=== PATIENT | male | born 1945 | race Caucasian/White ===

== ENCOUNTER 2020-06-07 08:41 | Emergency (ER) | payer OTHER ==
--- NOTE | 2020-06-07 10:28 | EDM.PDOC ---
ED HPI GENERAL MEDICAL PROBLEM - General Chief Complaint: Cardiovascular Problem Stated Complaint: SHORT OF BREATH LAST FEW DAYS Time Seen by Provider: 06/07/20 09:10 Source of Information: Reports: Patient History Limitations: Reports: No Limitations - History of Present Illness INITIAL COMMENTS - FREE TEXT/NARRATIVE: 74-year-old male with longstanding atrial fibrillation and coronary artery disease presents with 2 months of shortness of breath, seems to be worsening over the past 1 to 2 weeks. No pain, no orthopneic issues. Most of his shortness of breath is with activity. He is also noticed increased peripheral edema. He has had no sudden exchange engineer the last few days, it is been a progression over time. Denies palpitations. Onset: Gradual Duration: Week(s): Improves with: Reports: Rest Worsens with: Reports: Other (Dyspnea is much worse with activity), Movement Associated Symptoms: Reports: Malaise, Shortness of Breath, Weakness. Denies: Confusion, Chest Pain, Cough, Diaphoresis, Fever/Chills, Nausea/Vomiting - Related Data Allergies Allergy/AdvReac Type Severity Reaction Status Date / Time No Known Allergies Allergy Verified 06/07/20 09:03 Home Meds: Home Meds Alogliptin Benzoate [Alogliptin] 25 mg PO DAILY 06/07/20 [History] Aspirin [Halfprin] 81 mg PO DAILY 06/07/20 [History] Bicalutamide [Casodex] 50 mg PO DAILY 06/07/20 [History] Dabigatran Etexilate Mesylate [Pradaxa] 150 mg PO BID 06/07/20 [History] Digoxin 0.25 mg PO DAILY 06/07/20 [History] Finasteride 5 mg PO DAILY 06/07/20 [History] Leuprolide Acetate [Eligard] 22.5 mg SQ ASDIRECTED 06/07/20 [History] Multivitamin 1 tab PO DAILY 06/07/20 [History] atorvaSTATin [Lipitor] 80 mg PO BEDTIME 06/07/20 [History] glipiZIDE [Glucotrol] 10 mg PO DAILY 06/07/20 [History] metFORMIN [Glucophage] 2,000 mg PO DAILY 06/07/20 [History] traZODone HCl [Trazodone HCl] 100 mg PO ASDIRECTED 06/07/20 [History] Past Medical History Cardiovascular History: Reports: High Cholesterol, Hypertension, [place], Stents, Other (See Below) Other Cardiovascular History: irregular heart beat Respiratory History: Reports: Sleep Apnea, SOB Other Respiratory History: does not wear his cpap Gastrointestinal History: Reports: None Genitourinary History: Reports: Prostate Disorder Neurological History: Reports: Concussion Endocrine/Metabolic History: Reports: Obesity/BMI 30+ Hematologic History: Reports: Anticoagulation Therapy Oncologic (Cancer) History: Reports: Prostate - Past Surgical History Head Surgeries/Procedures: Reports: None Cardiovascular Surgical History: Reports: Coronary Artery Stent Respiratory Surgical History: Reports: None GI Surgical History: Reports: Appendectomy Endocrine Surgical History: Reports: None Neurological Surgical History: Reports: None Oncologic Surgical History: Reports: None Dermatological Surgical History: Reports: None Social & Family History - Tobacco Use Smoking Status *Q: Former Smoker Used Tobacco, but Quit: Yes Month/Year Tobacco Last Used: 2009 Second Hand Smoke Exposure: No - Caffeine Use Caffeine Use: Reports: Coffee - Recreational Drug Use Recreational Drug Use: No ED ROS GENERAL - Review of Systems Review Of Systems: See Below Constitutional: Denies: Fever, Chills Respiratory: Reports: Shortness of Breath. Denies: Pleuritic Chest Pain, Cough Cardiovascular: Denies: Palpitations GI/Abdominal: Denies: Abdominal Pain, Nausea, Vomiting Musculoskeletal: Reports: Back Pain (Chronic, recurring) Skin: Denies: Diaphoresis Neurological: Reports: Weakness Psychiatric: Reports: No Symptoms ED EXAM, GENERAL - Physical Exam Exam: See Below Exam Limited By: No Limitations General Appearance: Alert, No Apparent Distress Eye Exam: Bilateral Eye: Normal Inspection Head: Atraumatic Neck: Supple Respiratory/Chest: Lungs Clear Cardiovascular: Tachycardia, Irregularly Irregular GI/Abdominal: Soft, Non-Tender, Other (Patient is moderately obese) Extremities: Pedal Edema (2+ pitting edema, symmetric in the lower extremities) Neurological: Alert, Oriented, No Motor/Sensory Deficits Psychiatric: Normal Affect, Normal Mood Skin Exam: Warm, Dry EKG INTERPRETATION Rhythm: A-Fib Rate (Beats/Min): 120 QRS: Normal ST-T: Normal Course - Vital Signs Last Recorded V/S: Last Vital Signs Temp 97.5 F 06/07/20 09:12 Pulse 111 H 06/07/20 09:45 Resp 29 H 06/07/20 09:45 BP 144/104 H 06/07/20 09:45 Pulse Ox 90 L 07/29/20 09:45 - Orders/Labs/Meds Orders: Active Orders 24 hr Category Date Time Status EKG Documentation Completion [RC] ASDIRECTED Care 06/07/20 09:35 Active EKG 12 Lead [EK] Routine Ther 06/07/20 09:35 Ordered Labs: Laboratory Tests 06/07/20 06/07/20 06/07/20 Range/Units 09:35 09:35 09:45 WBC 9.7 (4.5-11.0) K/uL RBC 4.96 (4.30-5.90) M/uL Hgb 14.5 (12.0-15.0) g/dL Hct 44.3 (40.0-54.0) % MCV 89 (80-98) fL MCH 29 (27-31) pg MCHC 33 (32-36) % Plt Count 185 (150-400) K/uL Neut % (Auto) 70 H (36-66) % Lymph % (Auto) 21 L (24-44) % [place] % (Auto) 7 H (2-6) % Eos % (Auto) 1 L (2-4) % Baso % (Auto) 1 (0-1) % Sodium 142 (140-148) mmol/L Potassium 4.3 (3.6-5.2) mmol/L Chloride 104 (100-108) mmol/L Carbon Dioxide 31 (21-32) mmol/L Anion Gap 7.4 (5.0-14.0) mmol/L BUN 17 (7-18) mg/dL Creatinine 1.0 (0.8-1.3) mg/dL Est Cr Clr Drug Dosing 66.92 mL/min Estimated GFR (MDRD) > 60 (>60) Glucose 204 H (74-106) mg/dL Calcium 9.2 (8.5-10.1) mg/dL Total Bilirubin 0.9 (0.2-1.0) mg/dL AST 17 (15-37) U/L ALT 20 (12-78) U/L Alkaline Phosphatase 55 (46-116) U/L Troponin I 0.034 (0.000-0.056) ng/mL Total Protein 7.2 (6.4-8.2) g/dL Albumin 3.8 (3.4-5.0) g/dL Globulin 3.4 (2.3-3.5) g/dL Albumin/Globulin Ratio 1.1 L (1.2-2.2) Digoxin 0.28 L (0.90-2.00) ng/mL - Re-Assessments/Exams Free Text/Narrative Re-Assessment/Exam: 06/07/20 10:25 EKG confirmed atrial fibrillation with rapid ventricular response. Bedside ultrasound showed no pericardial effusion, there was some dilatation of the right ventricle but normal valve closure. Chest x-ray showed no congestive failure, there was cardiomegaly. CBC and CMP were remarkably normal, glucose was 204 all other levels were normal. Digoxin was subtherapeutic at 0.28 and troponin was within normal limits. 06/07/20 10:26 I reviewed the patient's medications and also discussed it with internal medicine. This patient would benefit from being on a beta-trudy as well as furosemide. He was started on 25 mg of extended release metoprolol to take at night bedtime, and 20 mg of Lasix to take in the morning. He will return if worsening despite the medication changes, and I also asked him to call his primary health provider at the [facility] to discuss the medications and approve them to continue taking them. 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 Watch any extra salt intake carefully, and discussed the new medications with your regular provider when possible. Return anytime if worsening despite medicine changes, or consider rechecking next week if not improving satisfactorily. Sepsis Event Note (ED) - Evaluation Sepsis Screening Result: No Definite Risk - Focused Exam Vital Signs: Vital Signs Temp Pulse Resp BP Pulse Ox 06/07/20 09:45 111 H 29 H 144/104 H 90 L 06/07/20 09:27 132 H 15 148/102 H 97 06/07/20 09:13 88 18 130/111 H 95 06/07/20 09:12 97.5 F 54 L 20 172/115 H 94 L 06/07/20 09:01 97.5 F 54 L 20 172/115 H 94 L - My Orders Last 24 Hours: My Active Orders 06/07/20 09:35 EKG Documentation Completion [RC] ASDIRECTED EKG 12 Lead [EK] Routine - Assessment/Plan Last 24 Hours: My Active Orders 06/07/20 09:35 EKG Documentation Completion [RC] ASDIRECTED EKG 12 Lead [EK] Routine
--- NOTE | 2020-06-07 10:37 | CR ---
CHEST: Portable 06/07/2020 at 9:46 AM CLINICAL HISTORY:SOB COMPARISON:2013 FINDINGS: Heart is enlarged. Lung markings are exaggerated by patient's large size and partially upright technique. Mild pulmonary venous hypertension is not excluded. No infiltrates or effusions seen. There are atherosclerotic changes in the aorta. Impression: Moderate cardiomegaly Mild vascular cephalization. Some of this may be positional.
== END 2020-06-07 10:35 | disposition home or self-care (01) ==
LOC: JP.ED 08:41
DX: I11.0 Hypertensive heart disease with heart failure (principal); I50.810 Right heart failure, unspecified; I25.2 Old myocardial infarction; E78.00 Pure hypercholesterolemia, unspecified; E66.9 Obesity, unspecified; Z68.28 Body mass index [BMI] 28.0-28.9, adult; Z95.5 Presence of coronary angioplasty implant and graft; Z87.891 Personal history of nicotine dependence; Z79.82 Long term (current) use of aspirin; Z79.899 Other long term (current) drug therapy; Z79.84 Long term (current) use of oral hypoglycemic drugs; Z79.01 Long term (current) use of anticoagulants
CPT/HCPCS: 36415; 71045; 71045-26; 80053; 80162; 84484; 85025; 93005; 93010; 99284; 99285-25

== ENCOUNTER 2020-06-12 10:12 | Inpatient (IN) | payer OTHER ==
[2020-06-12] MEDS ORDERED: Sodium Chloride 0.9% 10 ML Syringe FLUSH PRN ×2 (11:33→13:21)
[2020-06-12] MEDS ORDERED: Furosemide 40 MG/4 ML VIAL IVPUSH ONE ×2 (11:33→20:00)
--- NOTE | 2020-06-12 11:41 | EDM.PDOC ---
ED HPI GENERAL MEDICAL PROBLEM - General Chief Complaint: General Stated Complaint: BREATHING ISSUES Time Seen by Provider: 06/12/20 10:50 Source of Information: Reports: Patient History Limitations: Reports: No Limitations - History of Present Illness INITIAL COMMENTS - FREE TEXT/NARRATIVE: pt arrived feeling very sob. He has not been doing well for the past 2 weeks. He has been sleeping alot nd not eating he is just not able to funtion at home. Onset: Gradual Duration: Hour(s): Location: Reports: Chest, Lower Extremity, Left, Lower Extremity, Right, Other (pt has marked increase in swelling of both legs. ) Associated Symptoms: Reports: Loss of Appetite, Shortness of Breath, Weakness - Related Data Allergies Allergy/AdvReac Type Severity Reaction Status Date / Time No Known Allergies Allergy Verified 06/07/20 09:03 Home Meds: Home Meds Alogliptin Benzoate [Alogliptin] 25 mg PO DAILY 06/07/20 [History] Aspirin [Halfprin] 81 mg PO DAILY 06/07/20 [History] Bicalutamide [Casodex] 50 mg PO DAILY 06/07/20 [History] Dabigatran Etexilate Mesylate [Pradaxa] 150 mg PO BID 06/07/20 [History] Digoxin 0.25 mg PO DAILY 06/07/20 [History] Finasteride 5 mg PO DAILY 06/07/20 [History] Leuprolide Acetate [Eligard] 22.5 mg SQ ASDIRECTED 06/07/20 [History] Multivitamin 1 tab PO DAILY 06/07/20 [History] atorvaSTATin [Lipitor] 80 mg PO BEDTIME 06/07/20 [History] glipiZIDE [Glucotrol] 10 mg PO DAILY 06/07/20 [History] metFORMIN [Glucophage] 2,000 mg PO DAILY 06/07/20 [History] traZODone HCl [Trazodone HCl] 100 mg PO ASDIRECTED 06/07/20 [History] Furosemide 20 mg PO DAILY 06/12/20 [History] Metoprolol Succinate 25 mg PO DAILY 06/12/20 [History] Past Medical History Cardiovascular History: Reports: High Cholesterol, Hypertension, [place], Stents, Other (See Below) Other Cardiovascular History: irregular heart beat Respiratory History: Reports: Sleep Apnea, SOB Other Respiratory History: does not wear his cpap Gastrointestinal History: Reports: None Genitourinary History: Reports: Prostate Disorder Neurological History: Reports: Concussion Endocrine/Metabolic History: Reports: Obesity/BMI 30+ Hematologic History: Reports: Anticoagulation Therapy Oncologic (Cancer) History: Reports: Prostate - Infectious Disease History Infectious Disease History: Reports: Chicken Pox - Past Surgical History Head Surgeries/Procedures: Reports: None Cardiovascular Surgical History: Reports: Coronary Artery Stent Respiratory Surgical History: Reports: None GI Surgical History: Reports: Appendectomy Endocrine Surgical History: Reports: None Neurological Surgical History: Reports: None Oncologic Surgical History: Reports: None Dermatological Surgical History: Reports: None Social & Family History - Tobacco Use Smoking Status *Q: Former Smoker Used Tobacco, but Quit: Yes Month/Year Tobacco Last Used: many years ago - Caffeine Use Caffeine Use: Reports: Coffee, Soda, Tea ED ROS GENERAL - Review of Systems Review Of Systems: See Below Constitutional: Reports: Malaise, Weakness, Decreased Appetite HEENT: Reports: No Symptoms Respiratory: Reports: Shortness of Breath, Cough Cardiovascular: Reports: Palpitations Endocrine: Reports: High Glucose GI/Abdominal: Reports: Decreased Appetite : Reports: No Symptoms Musculoskeletal: Reports: No Symptoms Skin: Reports: No Symptoms Neurological: Reports: No Symptoms Psychiatric: Reports: Anxiety ED EXAM, GENERAL - Physical Exam Exam: See Below Free Text/Narrative:: pt arrived with a history of increased sob, sleeping all of the time and not ea ting. He has not done well for the past 2 weeks. Exam Limited By: Respiratory Distress General Appearance: Alert, Other (pt falls asleep easily. pupils equal and reactive. ) Ears: Normal TMs Nose: Normal Inspection Throat/Mouth: Normal Inspection Head: Atraumatic Neck: Normal Inspection Respiratory/Chest: Decreased Breath Sounds, Rales Cardiovascular: Tachycardia, Irregularly Irregular, Other (pt has a history of atrial fib. ) GI/Abdominal: Soft, Non-Tender (Male) Exam: Deferred Rectal (Males) Exam: Deferred Back Exam: Normal Inspection Extremities: Pedal Edema Neurological: Alert, Oriented, Other (falls asleep very easily) Psychiatric: Flat Affect Course - Vital Signs Last Recorded V/S: Last Vital Signs Temp 35.8 C L 06/12/20 10:40 Pulse 118 H 06/12/20 10:40 Resp 39 H 06/12/20 10:40 BP 144/103 H 06/12/20 10:40 Pulse Ox 95 06/12/20 10:40 - Orders/Labs/Meds Orders: Active Orders 24 hr Category Date Time Status EKG Documentation Completion [RC] ASDIRECTED Care 06/12/20 11:40 Active Chest 1V Frontal [CR] Stat Exams 06/12/20 10:31 Taken D Dimer [D-DIMER QUANTITATIVE] [COAG] Stat Lab 06/12/20 10:40 Received DIGOXIN [CHEM] Stat Lab 06/12/20 11:49 Ordered UA W/MICROSCOPIC [URIN] Urgent Lab 06/12/20 10:30 Ordered Sodium Chloride 0.9% [Saline Flush] Med 06/12/20 11:33 Active 10 ml FLUSH ASDIRECTED PRN Saline Lock Insert [OM.PC] Routine Oth 06/12/20 11:33 Ordered EKG 12 Lead [EK] Routine Ther 06/12/20 11:40 Ordered Medication Orders Sodium Chloride (Saline Flush) 10 ml FLUSH ASDIRECTED PRN PRN Reason: Keep Vein Open Labs: Laboratory Tests 06/12/20 06/12/20 06/12/20 Range/Units 10:31 10:40 10:40 WBC 12.3 H (4.5-11.0) K/uL RBC 5.47 (4.30-5.90) M/uL Hgb 15.7 H (12.0-15.0) g/dL Hct 48.2 (40.0-54.0) % MCV 88 (80-98) fL MCH 29 (27-31) pg MCHC 33 (32-36) % Plt Count 233 (150-400) K/uL Neut % (Auto) 79 H (36-66) % Lymph % (Auto) 14 L (24-44) % [place] % (Auto) 7 H (2-6) % Eos % (Auto) 0 L (2-4) % Baso % (Auto) 0 (0-1) % Puncture Site Rt radial ABG pH 7.347 L (7.350-7.450) ABG pCO2 58.0 H (35.0-42.0) mmHg ABG pO2 105.0 H (75.0-100.0) mmHg ABG HCO3 31.0 H (22.0-26.0) mmol/L ABG Total CO2 26.7 (23.0-27.0) mmol/L ABG O2 Saturation 96.2 (95.0-98.0) % ABG O2 Content 21.9 (15.0-23.0) %vol ABG Base Excess 3.8 mm/L ABG Hemoglobin 16.6 (13.5-18.0) g/dL ABG Oxyhemoglobin 93.7 % ABG Carboxyhemoglobin 1.9 H (0.0-1.6) % ABG Methemoglobin 0.7 % Hans Test Pass O2 Delivery Device Nasal cannula Oxygen Flow Rate 1.5 L Sodium 141 (140-148) mmol/L Potassium 3.9 (3.6-5.2) mmol/L Chloride 101 (100-108) mmol/L Carbon Dioxide 31 (21-32) mmol/L Anion Gap 9.2 (5.0-14.0) mmol/L BUN 29 H D (7-18) mg/dL Creatinine 1.1 (0.8-1.3) mg/dL Est Cr Clr Drug Dosing 62.75 mL/min Estimated GFR (MDRD) > 60 (>60) Glucose 247 H (74-106) mg/dL Calcium 9.1 (8.5-10.1) mg/dL Total Bilirubin 0.9 (0.2-1.0) mg/dL AST 22 (15-37) U/L ALT 22 (12-78) U/L Alkaline Phosphatase 64 (46-116) U/L Troponin I (0.000-0.056) ng/mL NT-Pro-B Natriuret Pep (5-125) pg/mL Total Protein 7.2 (6.4-8.2) g/dL Albumin 3.8 (3.4-5.0) g/dL Globulin 3.4 (2.3-3.5) g/dL Albumin/Globulin Ratio 1.1 L (1.2-2.2) 06/12/20 06/12/20 Range/Units 10:40 10:40 WBC (4.5-11.0) K/uL RBC (4.30-5.90) M/uL Hgb (12.0-15.0) g/dL Hct (40.0-54.0) % MCV (80-98) fL MCH (27-31) pg MCHC (32-36) % Plt Count (150-400) K/uL Neut % (Auto) (36-66) % Lymph % (Auto) (24-44) % [place] % (Auto) (2-6) % Eos % (Auto) (2-4) % Baso % (Auto) (0-1) % Puncture Site ABG pH (7.350-7.450) ABG pCO2 (35.0-42.0) mmHg ABG pO2 (75.0-100.0) mmHg ABG HCO3 (22.0-26.0) mmol/L ABG Total CO2 (23.0-27.0) mmol/L ABG O2 Saturation (95.0-98.0) % ABG O2 Content (15.0-23.0) %vol ABG Base Excess mm/L ABG Hemoglobin (13.5-18.0) g/dL ABG Oxyhemoglobin % ABG Carboxyhemoglobin (0.0-1.6) % ABG Methemoglobin % Hans Test O2 Delivery Device Oxygen Flow Rate L Sodium (140-148) mmol/L Potassium (3.6-5.2) mmol/L Chloride (100-108) mmol/L Carbon Dioxide (21-32) mmol/L Anion Gap (5.0-14.0) mmol/L BUN (7-18) mg/dL Creatinine (0.8-1.3) mg/dL Est Cr Clr Drug Dosing mL/min Estimated GFR (MDRD) (>60) Glucose (74-106) mg/dL Calcium (8.5-10.1) mg/dL Total Bilirubin (0.2-1.0) mg/dL AST (15-37) U/L ALT (12-78) U/L Alkaline Phosphatase (46-116) U/L Troponin I 0.024 (0.000-0.056) ng/mL NT-Pro-B Natriuret Pep 5894 H (5-125) pg/mL Total Protein (6.4-8.2) g/dL Albumin (3.4-5.0) g/dL Globulin (2.3-3.5) g/dL Albumin/Globulin Ratio (1.2-2.2) Meds: Medications Generic Name Dose Route Start Last Admin Trade Name Freq PRN Reason Stop Dose Admin Sodium Chloride 10 ml 06/12/20 11:33 Saline Flush FLUSH ASDIRECTED PRN Keep Vein Open Discontinued Medications Generic Name Dose Route Start Last Admin Trade Name Cucoq PRN Reason Stop Dose Admin Furosemide 60 mg 06/12/20 11:33 Lasix IVPUSH 06/12/20 11:34 ONETIME ONE Metoprolol Tartrate 2.5 mg 06/12/20 12:00 Lopressor IVPUSH 06/12/20 12:01 ONETIME ONE - Re-Assessments/Exams Free Text/Narrative Re-Assessment/Exam: 06/12/20 12:11 bnp is elevated. His chest xray shos enlargement of the heart. Ekg shows atrial fib with a poorly controlled ventricul;ar rate. Departure - Departure Time of Disposition: 12:13 Disposition: Admitted As Inpatient 66 Condition: Fair Clinical Impression: Fluid overload, Atrial fibrillation with rapid ventricular response - Discharge Information Referrals: Jayjay Tee MD [Primary Care Provider] - Forms: ED Department Discharge Care Plan Goals: admit to Dr Castillo. Sepsis Event Note (ED) - Focused Exam Vital Signs: Vital Signs Temp Pulse Resp BP Pulse Ox 06/12/20 10:40 35.8 C L 118 H 39 H 144/103 H 95 - My Orders Last 24 Hours: My Active Orders 06/12/20 10:30 UA W/MICROSCOPIC [URIN] Urgent 06/12/20 10:31 Chest 1V Frontal [CR] Stat 06/12/20 10:40 D Dimer [D-DIMER QUANTITATIVE] [COAG] Stat 06/12/20 11:33 Sodium Chloride 0.9% [Saline Flush] 10 ml FLUSH ASDIRECTED PRN Saline Lock Insert [OM.PC] Routine 06/12/20 11:40 EKG Documentation Completion [RC] ASDIRECTED EKG 12 Lead [EK] Routine 06/12/20 11:49 DIGOXIN [CHEM] Stat - Assessment/Plan Last 24 Hours: My Active Orders 06/12/20 10:30 UA W/MICROSCOPIC [URIN] Urgent 06/12/20 10:31 Chest 1V Frontal [CR] Stat 06/12/20 10:40 D Dimer [D-DIMER QUANTITATIVE] [COAG] Stat 06/12/20 11:33 Sodium Chloride 0.9% [Saline Flush] 10 ml FLUSH ASDIRECTED PRN Saline Lock Insert [OM.PC] Routine 06/12/20 11:40 EKG Documentation Completion [RC] ASDIRECTED EKG 12 Lead [EK] Routine 06/12/20 11:49 DIGOXIN [CHEM] Stat
[2020-06-12] MEDS ORDERED: Metoprolol Tartrate 5 MG/5 ML SDV IVPUSH ONE (12:00)
--- NOTE | 2020-06-12 12:32 | CR ---
CHEST: Portable 06/12/2020 at 1051 CLINICAL HISTORY:SOB COMPARISON:06/07/2020 FINDINGS: Heart is moderately enlarged. Pelvic vascularity is diminished slightly when compared to prior study. There are atherosclerotic changes in the aorta.. No infiltrates are seen. There appears to be a small right effusion. Impression: Moderate cardiomegaly Small right pleural effusion
--- NOTE | 2020-06-12 12:42 | PCM.HP.2 ---
H&P History of Present Illness - General Date of Service: 06/12/20 Admit Problem/Dx: Admission Diagnosis/Problem Admission Diagnosis/Problem CHF, Congestive heart failure Source of Information: Patient, Family, Provider, RN Notes Reviewed History Limitations: Reports: No Limitations - History of Present Illness Initial Comments - Free Text/Narative: Mr. Nails is a 74-year-old gentleman who was admitted through the emergency department with weakness and shortness of breath secondary to CHF exacerbation. He has not felt well for the past 2 to 3 weeks with increased shortness of breath and weakness. He has experienced orthopnea and has had to sleep in the chair for the past 2 weeks. During this period of time also has had increase in peripheral edema. When he presented to the emergency department was hypoxic with respiratory rate in the upper 30s. He has improved with use of supplemental oxygen and is also received IV furosemide in the emergency department. Chest x-ray shows evidence of pulmonary edema. He reports that he does have untreated sleep apnea, but is unable to wear his CPAP because of discomfort. Echocardiogram was obtained in the emergency department, preliminary report shows decreased left ventricular function with estimated ejection fraction of 35 to 40%. He has a known history of coronary artery disease and is status post previous angioplasty with stent placement. He denies any recent symptoms of chest pain or pressure. - Related Data Allergies/Adverse Reactions: Allergies Allergy/AdvReac Type Severity Reaction Status Date / Time No Known Allergies Allergy Verified 06/07/20 09:03 Home Medications: Home Meds Alogliptin Benzoate [Alogliptin] 25 mg PO DAILY 06/07/20 [History] Aspirin [Halfprin] 81 mg PO DAILY 06/07/20 [History] Bicalutamide [Casodex] 50 mg PO DAILY 06/07/20 [History] Dabigatran Etexilate Mesylate [Pradaxa] 150 mg PO BID 06/07/20 [History] Digoxin 0.25 mg PO DAILY 06/07/20 [History] Finasteride 5 mg PO DAILY 06/07/20 [History] Leuprolide Acetate [Eligard] 22.5 mg SQ ASDIRECTED 06/07/20 [History] Multivitamin 1 tab PO DAILY 06/07/20 [History] atorvaSTATin [Lipitor] 80 mg PO BEDTIME 06/07/20 [History] glipiZIDE [Glucotrol] 10 mg PO DAILY 06/07/20 [History] metFORMIN [Glucophage] 2,000 mg PO DAILY 06/07/20 [History] traZODone HCl [Trazodone HCl] 100 mg PO ASDIRECTED 06/07/20 [History] Furosemide 20 mg PO DAILY 06/12/20 [History] Metoprolol Succinate 25 mg PO DAILY 06/12/20 [History] Past Medical History Cardiovascular History: Reports: High Cholesterol, Hypertension, SD, Stents, Other (See Below) Other Cardiovascular History: irregular heart beat Respiratory History: Reports: Sleep Apnea, SOB Other Respiratory History: does not wear his cpap Gastrointestinal History: Reports: None Genitourinary History: Reports: Prostate Disorder Neurological History: Reports: Concussion Endocrine/Metabolic History: Reports: Obesity/BMI 30+ Hematologic History: Reports: Anticoagulation Therapy Oncologic (Cancer) History: Reports: Prostate - Infectious Disease History Infectious Disease History: Reports: Chicken Pox - Past Surgical History Head Surgeries/Procedures: Reports: None Cardiovascular Surgical History: Reports: Coronary Artery Stent Respiratory Surgical History: Reports: None GI Surgical History: Reports: Appendectomy Endocrine Surgical History: Reports: None Neurological Surgical History: Reports: None Oncologic Surgical History: Reports: None Dermatological Surgical History: Reports: None Social & Family History - Tobacco Use Smoking Status *Q: Former Smoker Used Tobacco, but Quit: Yes Month/Year Tobacco Last Used: many years ago - Caffeine Use Caffeine Use: Reports: Coffee, Soda, Tea H&P Review of Systems - Review of Systems: Review Of Systems: See Below General: Reports: Malaise, Weakness, Fatigue. Denies: Fever, Chills HEENT: Reports: No Symptoms Pulmonary: Reports: Shortness of Breath. Denies: Wheezing, Pleuritic Chest Pain, Cough, Sputum, Hemoptysis Cardiovascular: Reports: Palpitations, Dyspnea on Exertion, Orthopnea, Edema. Denies: Chest Pain, PND, Lightheadedness, Syncope Gastrointestinal: Reports: No Symptoms Genitourinary: Reports: No Symptoms Musculoskeletal: Reports: No Symptoms Skin: Reports: No Symptoms Psychiatric: Reports: No Symptoms Neurological: Reports: No Symptoms Hematologic/Lymphatic: Reports: No Symptoms Immunologic: Reports: No Symptoms Exam - Exam Exam: See Below - Vital Signs Vital Signs: Last Vital Signs Temp 96.5 F L 06/12/20 12:40 Pulse 119 H 06/12/20 12:40 Resp 20 06/12/20 12:40 BP 122/82 06/12/20 12:40 Pulse Ox 95 06/12/20 12:40 Weight: 266 lb 1.567 oz - Exam Quality Assessment: Supplemental Oxygen, DVT Prophylaxis General: Alert, Oriented, Cooperative, Moderate Distress HEENT: Conjunctiva Clear, Hearing Intact, Mucosa Moist & [place], Normal Nasal Septum, Posterior Pharynx Clear, Pupils Equal Neck: Supple, Trachea Midline, +2 Carotid Pulse wo Bruit Lungs: Normal Respiratory Effort, Rales. No: Crackles, Rhonchi, Wheezing Cardiovascular: Normal S1, Normal S2, Irregular Rhythm, Tachycardia, Systolic Murmur. No: Diastolic Murmur GI/Abdominal Exam: Soft, Non-Tender, No Organomegaly, No Distention Back Exam: Normal Inspection, Full Range of Motion Extremities: Non-Tender, Pedal Edema Skin: Warm, Dry, Intact Neurological: Cranial Nerves Intact, Strength Equal Bilateral, Normal Speech, Normal Tone, Sensation Intact. No: Focal Deficit Neuro Extensive - Mental Status: Alert, Oriented x3, Normal Mood/Affect, Normal Cognition, Memory Intact - Patient Data Lab Results Last 24 hrs: Laboratory Results - last 24 hr 06/12/20 06/12/20 06/12/20 Range/Units 10:31 10:40 10:40 WBC 12.3 H (4.5-11.0) K/uL RBC 5.47 (4.30-5.90) M/uL Hgb 15.7 H (12.0-15.0) g/dL Hct 48.2 (40.0-54.0) % MCV 88 (80-98) fL MCH 29 (27-31) pg MCHC 33 (32-36) % Plt Count 233 (150-400) K/uL Neut % (Auto) 79 H (36-66) % Lymph % (Auto) 14 L (24-44) % [place] % (Auto) 7 H (2-6) % Eos % (Auto) 0 L (2-4) % Baso % (Auto) 0 (0-1) % D-Dimer, Quantitative (0.0-400.0) ng/mL Puncture Site Rt radial ABG pH 7.347 L (7.350-7.450) ABG pCO2 58.0 H (35.0-42.0) mmHg ABG pO2 105.0 H (75.0-100.0) mmHg ABG HCO3 31.0 H (22.0-26.0) mmol/L ABG Total CO2 26.7 (23.0-27.0) mmol/L ABG O2 Saturation 96.2 (95.0-98.0) % ABG O2 Content 21.9 (15.0-23.0) %vol ABG Base Excess 3.8 mm/L ABG Hemoglobin 16.6 (13.5-18.0) g/dL ABG Oxyhemoglobin 93.7 % ABG Carboxyhemoglobin 1.9 H (0.0-1.6) % ABG Methemoglobin 0.7 % Hans Test Pass O2 Delivery Device Nasal cannula Oxygen Flow Rate 1.5 L Sodium 141 (140-148) mmol/L Potassium 3.9 (3.6-5.2) mmol/L Chloride 101 (100-108) mmol/L Carbon Dioxide 31 (21-32) mmol/L Anion Gap 9.2 (5.0-14.0) mmol/L BUN 29 H D (7-18) mg/dL Creatinine 1.1 (0.8-1.3) mg/dL Est Cr Clr Drug Dosing 62.75 mL/min Estimated GFR (MDRD) > 60 (>60) Glucose 247 H (74-106) mg/dL Calcium 9.1 (8.5-10.1) mg/dL Total Bilirubin 0.9 (0.2-1.0) mg/dL AST 22 (15-37) U/L ALT 22 (12-78) U/L Alkaline Phosphatase 64 (46-116) U/L Troponin I (0.000-0.056) ng/mL NT-Pro-B Natriuret Pep (5-125) pg/mL Total Protein 7.2 (6.4-8.2) g/dL Albumin 3.8 (3.4-5.0) g/dL Globulin 3.4 (2.3-3.5) g/dL Albumin/Globulin Ratio 1.1 L (1.2-2.2) Urine Color (YELLOW) Urine Appearance (CLEAR) Urine pH (5.0-8.0) Ur Specific [place] (1.008-1.030) Urine Protein (NEGATIVE) mg/dL Urine Glucose (UA) (NEGATIVE) mg/dL Urine Ketones (NEGATIVE) mg/dL Urine Occult Blood (NEGATIVE) Urine Nitrite (NEGATIVE) Urine Bilirubin (NEGATIVE) Urine Urobilinogen (0.2-1.0) EU/dL Ur Leukocyte Esterase (NEGATIVE) Urine RBC (0-5) Urine WBC (0-5) Ur Epithelial Cells Urine Bacteria Digoxin (0.90-2.00) ng/mL 06/12/20 06/12/20 06/12/20 Range/Units 10:40 10:40 10:40 WBC (4.5-11.0) K/uL RBC (4.30-5.90) M/uL Hgb (12.0-15.0) g/dL Hct (40.0-54.0) % MCV (80-98) fL MCH (27-31) pg MCHC (32-36) % Plt Count (150-400) K/uL Neut % (Auto) (36-66) % Lymph % (Auto) (24-44) % [place] % (Auto) (2-6) % Eos % (Auto) (2-4) % Baso % (Auto) (0-1) % D-Dimer, Quantitative 159 (0.0-400.0) ng/mL Puncture Site ABG pH (7.350-7.450) ABG pCO2 (35.0-42.0) mmHg ABG pO2 (75.0-100.0) mmHg ABG HCO3 (22.0-26.0) mmol/L ABG Total CO2 (23.0-27.0) mmol/L ABG O2 Saturation (95.0-98.0) % ABG O2 Content (15.0-23.0) %vol ABG Base Excess mm/L ABG Hemoglobin (13.5-18.0) g/dL ABG Oxyhemoglobin % ABG Carboxyhemoglobin (0.0-1.6) % ABG Methemoglobin % Hans Test O2 Delivery Device Oxygen Flow Rate L Sodium (140-148) mmol/L Potassium (3.6-5.2) mmol/L Chloride (100-108) mmol/L Carbon Dioxide (21-32) mmol/L Anion Gap (5.0-14.0) mmol/L BUN (7-18) mg/dL Creatinine (0.8-1.3) mg/dL Est Cr Clr Drug Dosing mL/min Estimated GFR (MDRD) (>60) Glucose (74-106) mg/dL Calcium (8.5-10.1) mg/dL Total Bilirubin (0.2-1.0) mg/dL AST (15-37) U/L ALT (12-78) U/L Alkaline Phosphatase (46-116) U/L Troponin I 0.024 (0.000-0.056) ng/mL NT-Pro-B Natriuret Pep 5894 H (5-125) pg/mL Total Protein (6.4-8.2) g/dL Albumin (3.4-5.0) g/dL Globulin (2.3-3.5) g/dL Albumin/Globulin Ratio (1.2-2.2) Urine Color (YELLOW) Urine Appearance (CLEAR) Urine pH (5.0-8.0) Ur Specific [place] (1.008-1.030) Urine Protein (NEGATIVE) mg/dL Urine Glucose (UA) (NEGATIVE) mg/dL Urine Ketones (NEGATIVE) mg/dL Urine Occult Blood (NEGATIVE) Urine Nitrite (NEGATIVE) Urine Bilirubin (NEGATIVE) Urine Urobilinogen (0.2-1.0) EU/dL Ur Leukocyte Esterase (NEGATIVE) Urine RBC (0-5) Urine WBC (0-5) Ur Epithelial Cells Urine Bacteria Digoxin (0.90-2.00) ng/mL 06/12/20 06/12/20 Range/Units 10:40 12:17 WBC (4.5-11.0) K/uL RBC (4.30-5.90) M/uL Hgb (12.0-15.0) g/dL Hct (40.0-54.0) % MCV (80-98) fL MCH (27-31) pg MCHC (32-36) % Plt Count (150-400) K/uL Neut % (Auto) (36-66) % Lymph % (Auto) (24-44) % [place] % (Auto) (2-6) % Eos % (Auto) (2-4) % Baso % (Auto) (0-1) % D-Dimer, Quantitative (0.0-400.0) ng/mL Puncture Site ABG pH (7.350-7.450) ABG pCO2 (35.0-42.0) mmHg ABG pO2 (75.0-100.0) mmHg ABG HCO3 (22.0-26.0) mmol/L ABG Total CO2 (23.0-27.0) mmol/L ABG O2 Saturation (95.0-98.0) % ABG O2 Content (15.0-23.0) %vol ABG Base Excess mm/L ABG Hemoglobin (13.5-18.0) g/dL ABG Oxyhemoglobin % ABG Carboxyhemoglobin (0.0-1.6) % ABG Methemoglobin % Hans Test O2 Delivery Device Oxygen Flow Rate L Sodium (140-148) mmol/L Potassium (3.6-5.2) mmol/L Chloride (100-108) mmol/L Carbon Dioxide (21-32) mmol/L Anion Gap (5.0-14.0) mmol/L BUN (7-18) mg/dL Creatinine (0.8-1.3) mg/dL Est Cr Clr Drug Dosing mL/min Estimated GFR (MDRD) (>60) Glucose (74-106) mg/dL Calcium (8.5-10.1) mg/dL Total Bilirubin (0.2-1.0) mg/dL AST (15-37) U/L ALT (12-78) U/L Alkaline Phosphatase (46-116) U/L Troponin I (0.000-0.056) ng/mL NT-Pro-B Natriuret Pep (5-125) pg/mL Total Protein (6.4-8.2) g/dL Albumin (3.4-5.0) g/dL Globulin (2.3-3.5) g/dL Albumin/Globulin Ratio (1.2-2.2) Urine Color Yellow (YELLOW) Urine Appearance Clear (CLEAR) Urine pH 5.0 (5.0-8.0) Ur Specific [place] 1.020 (1.008-1.030) Urine Protein 100 H (NEGATIVE) mg/dL Urine Glucose (UA) Negative (NEGATIVE) mg/dL Urine Ketones Negative (NEGATIVE) mg/dL Urine Occult Blood Trace-intact H (NEGATIVE) Urine Nitrite Negative (NEGATIVE) Urine Bilirubin Negative (NEGATIVE) Urine Urobilinogen 0.2 (0.2-1.0) EU/dL Ur Leukocyte Esterase Negative (NEGATIVE) Urine RBC Not seen (0-5) Urine WBC Not seen (0-5) Ur Epithelial Cells Not seen Urine Bacteria Not seen Digoxin < 0.20 L (0.90-2.00) ng/mL Result Diagrams: 06/12/20 10:40 06/12/20 10:40 Sepsis Event Note - Evaluation Sepsis Screening Result: No Definite Risk - Focused Exam Vital Signs: Vital Signs Temp Pulse Pulse Resp BP BP Pulse Ox 06/12/20 12:40 96.5 F L 119 H 20 122/82 95 06/12/20 12:37 116 H 138/102 H 06/12/20 12:18 119 H 20 122/82 06/12/20 10:40 96.5 F L 118 H 39 H 144/103 H 95 Date Exam was Performed: 06/12/20 Time Exam was Performed: 13:30 *Q Meaningful Use (ADM) - VTE *Q VTE Pharmacological Contraindications *Q: High INR Value - VTE Risk Assess *Q Each Risk Factor Represents 1 Point: Obesity ( BMI > 25 kg/m2), Congestive heart failure (CHF) Total Score 1 Point Risk Factors: 2 Each Risk Factor Represents 2 Points: Age 60 - 74 Years Total Score 2 Point Risk Factors: 2 Each Risk Factor Represents 3 Points: None Total Score 3 Point Risk Factors: 0 Each Risk Factor Represents 5 Points: None Total Score 5 Point Risk Factors: 0 Venous Thromboembolism Risk Factor Score *Q: 4 Problem List Initiated/Reviewed/Updated: Yes Orders Last 24hrs: Active Orders 24 hr Category Date Time Status Patient Status Manage Transfer [TRANSFER] Routine ADT 06/12/20 12:29 Ordered EKG Documentation Completion [RC] ASDIRECTED Care 06/12/20 11:40 Active Echo Comp w Cont [US] Stat Exams 06/12/20 12:15 Ordered TSH ULTRASENSITIVE [CHEM] Stat Lab 06/12/20 10:40 Received Sodium Chloride 0.9% [Saline Flush] Med 06/12/20 11:33 Active 10 ml FLUSH ASDIRECTED PRN Saline Lock Insert [OM.PC] Routine Oth 06/12/20 11:33 Ordered Resuscitation Status Routine Resus Stat 06/12/20 12:33 Ordered EKG 12 Lead [EK] Routine Ther 06/12/20 11:40 Ordered Medication Orders Sodium Chloride (Saline Flush) 10 ml FLUSH ASDIRECTED PRN PRN Reason: Keep Vein Open Last Admin: 06/12/20 12:38 Dose: 10 ml Documented by: ESTELA Assessment/Plan Comment:: ASSESSMENT AND PLAN CONGESTIVE HEART FAILURE-increased shortness of breath secondary to fluid overload. Echocardiogram does show decrease in left ventricular systolic function with estimated ejection fraction of 35 to 40%, formal report pending at the time of this dictation. Increase in peripheral edema as well as symptoms of orthopnea. -IV furosemide twice today, reassess in a.m. -Continue beta-trudy therapy -Start FABIAN inhibitor therapy lisinopril 5 mg daily -Formal echo report pending ATRIAL FIBRILLATION WITH RAPID VENTRICULAR RESPONSE-patient reports that he has been taking his beta-trudy and digoxin. Fact current increase in rate is secondary to his CHF exacerbation -Monitor in ICU -Consider increased dose of metoprolol SLEEP APNEA-he did have a formal sleep study documenting sleep apnea, he is unable to tolerate use of his CPAP -Consider nocturnal oxygen -Continuous pulse oximeter TYPE 2 DIABETES MELLITUS -Hold glipizide -Continue metformin -4 times daily glucometers -Low-dose sliding scale Humalog MAINTENANCE ISSUES -DVT prophylaxis; current therapy with Pradaxa should provide adequate DVT prophylaxis -GI prophylaxis; not indicated -Bullard catheter; not indicated -Nutrition; 2 g sodium consistent carb diet -Nicotine dependence; not required CODE STATUS-FULL CODE ADMISSION STATUS-patient will be admitted to inpatient status, expect at least a 2 night hospital stay for evaluation and management of problems as outlined above. At the time of this admission I do not reasonably expected evaluation and management of this problem will require more than a 96 hour hospital stay. DISPOSITION-anticipate discharge to home after the hospital stay. PRIMARY CARE PROVIDER- - Mortality Measure Prognosis:: Good
[2020-06-12] MEDS ORDERED: 50% Dextrose in Water 50 ML Syringe IV PRN (13:21)
[2020-06-12] MEDS ORDERED: Albuterol 0.083% 2.5 MG/3 ML Neb Soln NEB PRN (13:21)
[2020-06-12] MEDS ORDERED: Acetaminophen 325 MG Tab PO PRN (13:21)
[2020-06-12] MEDS ORDERED: Ondansetron 4 MG/2 ML SDV IV PRN (13:21)
[2020-06-12] MEDS ORDERED: Glucose Gel 15 GM in 37.5 GM Tube PO PRN (13:21)
[2020-06-12] MEDS ORDERED: Polyethylene Glycol 3350 Powder 17 GM Packet PO PRN (13:21)
[2020-06-12] MEDS: Lisinopril 5 MG Tab PO SCH (14:45)
[2020-06-12] MEDS: Metoprolol Succinate 25 MG Tab.ER PO SCH (14:45)
[2020-06-12] MEDS: Insulin Lispro 100 Unit/ML 3 ML KwikPen SUBCUT SCH ×2 (16:34→20:44)
[2020-06-12] MEDS: metFORMIN 500 MG Tab PO SCH (16:36)
[2020-06-12] MEDS ORDERED: Non-Formulary Medication 1 Each (Atorvastatin [Lipitor] 80 MG) PO SCH (21:00)
[2020-06-12] MEDS ORDERED: Non-Formulary Medication 1 Each (Metformin [Glucophage] 1,000 MG) PO SCH (21:00)
[2020-06-12] MEDS: atorvaSTATin 20 MG Tab PO SCH (21:41)
[2020-06-13] MEDS: Insulin Lispro 100 Unit/ML 3 ML KwikPen SUBCUT SCH ×4 (08:22→20:44)
[2020-06-13] MEDS: metFORMIN 500 MG Tab PO SCH ×2 (08:28→16:43)
[2020-06-13] MEDS: Aspirin 81 MG Tab.EC PO SCH (08:49)
[2020-06-13] MEDS: BICALUTAMIDE 50 MG PO SCH (08:50)
[2020-06-13] MEDS: Finasteride 5 MG Tab PO SCH (08:50)
[2020-06-13] MEDS: Metoprolol Succinate 25 MG Tab.ER PO SCH (08:50)
[2020-06-13] MEDS: Lisinopril 5 MG Tab PO SCH (08:50)
[2020-06-13] MEDS ORDERED: Non-Formulary Medication 1 Each (Bicalutamide [Casodex] 50 MG) PO SCH (09:00)
[2020-06-13] MEDS ORDERED: Furosemide 20 MG/2 ML VIAL IVPUSH ONE ×2 (09:15→19:00)
[2020-06-13] MEDS ORDERED: Potassium Chloride 20 MEQ Tab.ER PO ONE ×2 (09:15→17:00)
--- NOTE | 2020-06-13 10:28 | PCM.PN ---
- General Info Date of Service: 06/13/20 Subjective Update: Mr. Nails follow-up to worsening hypercapnia after admission with increasing lethargy. He was placed on noninvasive positive pressure ventilation during the night and reports that he feels much improved this morning. He has experienced a good diuresis thus far with IV furosemide. Formal echocardiogram report shows estimated left ventricular systolic ejection fraction of 25 to 30%. Functional Status: Reports: Tolerating Diet, Ambulating, Urinating - Review of Systems General: Reports: Weakness, Fatigue. Denies: Fever, Chills Pulmonary: Reports: Shortness of Breath. Denies: Pleuritic Chest Pain, Cough, Sputum, Hemoptysis, Wheezing Cardiovascular: Reports: Palpitations, Dyspnea on Exertion, Edema. Denies: Chest Pain, Orthopnea, PND, Lightheadedness Gastrointestinal: Reports: No Symptoms - Patient Data Vitals - Most Recent: Last Vital Signs Temp 96.7 F L 06/13/20 07:00 Pulse 98 06/13/20 09:00 Resp 13 06/13/20 09:00 BP 135/83 06/13/20 09:00 Pulse Ox 92 L 06/13/20 09:00 Weight - Most Recent: 266 lb 14.4 oz I&O - Last 24 Hours: Intake & Output 06/12/20 06/13/20 06/13/20 22:59 06:59 14:59 Intake Total 330 120 240 Output Total 1050 150 Balance -720 -30 240 Lab Results Last 24 Hours: Laboratory Results - last 24 hr 06/12/20 06/12/20 06/12/20 Range/Units 10:31 10:40 10:40 WBC 12.3 H (4.5-11.0) K/uL RBC 5.47 (4.30-5.90) M/uL Hgb 15.7 H (12.0-15.0) g/dL Hct 48.2 (40.0-54.0) % POC Hct (36-48) % MCV 88 (80-98) fL MCH 29 (27-31) pg MCHC 33 (32-36) % Plt Count 233 (150-400) K/uL Neut % (Auto) 79 H (36-66) % Lymph % (Auto) 14 L (24-44) % [place] % (Auto) 7 H (2-6) % Eos % (Auto) 0 L (2-4) % Baso % (Auto) 0 (0-1) % D-Dimer, Quantitative (0.0-400.0) ng/mL Sample Site Puncture Site Rt radial POC ABG pH (7.35-7.45) ABG pH 7.347 L (7.350-7.450) POC ABG pCO2 (35-45) mmHG ABG pCO2 58.0 H (35.0-42.0) mmHg POC ABG pO2 (80-105) mmHg ABG pO2 105.0 H (75.0-100.0) mmHg POC ABG HCO3 (22.0-26.0) mmol/L ABG HCO3 31.0 H (22.0-26.0) mmol/L POC ABG Total CO2 (23-27) mmol/L ABG Total CO2 26.7 (23.0-27.0) mmol/L POC ABG O2 Sat (95-98) % ABG O2 Saturation 96.2 (95.0-98.0) % ABG O2 Content 21.9 (15.0-23.0) %vol POC ABG Base Excess (-2-3) mmol/L ABG Base Excess 3.8 mm/L ABG Hemoglobin 16.6 (13.5-18.0) g/dL ABG Oxyhemoglobin 93.7 % ABG Carboxyhemoglobin 1.9 H (0.0-1.6) % ABG Methemoglobin 0.7 % Hans Test Pass O2 Delivery Device Nasal cannula Oxygen Flow Rate 1.5 L POC O2 Flow Rate POC Sodium (140-148) mmol/L Sodium 141 (140-148) mmol/L POC Potassium (3.5-4.9) mmol/L Potassium 3.9 (3.6-5.2) mmol/L Chloride 101 (100-108) mmol/L Carbon Dioxide 31 (21-32) mmol/L Anion Gap 9.2 (5.0-14.0) mmol/L BUN 29 H D (7-18) mg/dL Creatinine 1.1 (0.8-1.3) mg/dL Est Cr Clr Drug Dosing 62.75 mL/min Estimated GFR (MDRD) > 60 (>60) Glucose 247 H (74-106) mg/dL Calcium 9.1 (8.5-10.1) mg/dL POC WB Ioniz Calcium (1.12-1.32) mmol/L Magnesium (1.8-2.4) mg/dL Total Bilirubin 0.9 (0.2-1.0) mg/dL AST 22 (15-37) U/L ALT 22 (12-78) U/L Alkaline Phosphatase 64 (46-116) U/L Troponin I (0.000-0.056) ng/mL NT-Pro-B Natriuret Pep (5-125) pg/mL Total Protein 7.2 (6.4-8.2) g/dL Albumin 3.8 (3.4-5.0) g/dL Globulin 3.4 (2.3-3.5) g/dL Albumin/Globulin Ratio 1.1 L (1.2-2.2) TSH, Ultra Sensitive (0.358-3.740) uIU/mL Urine Color (YELLOW) Urine Appearance (CLEAR) Urine pH (5.0-8.0) Ur Specific Olden (1.008-1.030) Urine Protein (NEGATIVE) mg/dL Urine Glucose (UA) (NEGATIVE) mg/dL Urine Ketones (NEGATIVE) mg/dL Urine Occult Blood (NEGATIVE) Urine Nitrite (NEGATIVE) Urine Bilirubin (NEGATIVE) Urine Urobilinogen (0.2-1.0) EU/dL Ur Leukocyte Esterase (NEGATIVE) Urine RBC (0-5) Urine WBC (0-5) Ur Epithelial Cells Urine Bacteria Digoxin (0.90-2.00) ng/mL 06/12/20 06/12/20 06/12/20 Range/Units 10:40 10:40 10:40 WBC (4.5-11.0) K/uL RBC (4.30-5.90) M/uL Hgb (12.0-15.0) g/dL Hct (40.0-54.0) % POC Hct (36-48) % MCV (80-98) fL MCH (27-31) pg MCHC (32-36) % Plt Count (150-400) K/uL Neut % (Auto) (36-66) % Lymph % (Auto) (24-44) % [place] % (Auto) (2-6) % Eos % (Auto) (2-4) % Baso % (Auto) (0-1) % D-Dimer, Quantitative 159 (0.0-400.0) ng/mL Sample Site Puncture Site POC ABG pH (7.35-7.45) ABG pH (7.350-7.450) POC ABG pCO2 (35-45) mmHG ABG pCO2 (35.0-42.0) mmHg POC ABG pO2 (80-105) mmHg ABG pO2 (75.0-100.0) mmHg POC ABG HCO3 (22.0-26.0) mmol/L ABG HCO3 (22.0-26.0) mmol/L POC ABG Total CO2 (23-27) mmol/L ABG Total CO2 (23.0-27.0) mmol/L POC ABG O2 Sat (95-98) % ABG O2 Saturation (95.0-98.0) % ABG O2 Content (15.0-23.0) %vol POC ABG Base Excess (-2-3) mmol/L ABG Base Excess mm/L ABG Hemoglobin (13.5-18.0) g/dL ABG Oxyhemoglobin % ABG Carboxyhemoglobin (0.0-1.6) % ABG Methemoglobin % Hans Test O2 Delivery Device Oxygen Flow Rate L POC O2 Flow Rate POC Sodium (140-148) mmol/L Sodium (140-148) mmol/L POC Potassium (3.5-4.9) mmol/L Potassium (3.6-5.2) mmol/L Chloride (100-108) mmol/L Carbon Dioxide (21-32) mmol/L Anion Gap (5.0-14.0) mmol/L BUN (7-18) mg/dL Creatinine (0.8-1.3) mg/dL Est Cr Clr Drug Dosing mL/min Estimated GFR (MDRD) (>60) Glucose (74-106) mg/dL Calcium (8.5-10.1) mg/dL POC WB Ioniz Calcium (1.12-1.32) mmol/L Magnesium (1.8-2.4) mg/dL Total Bilirubin (0.2-1.0) mg/dL AST (15-37) U/L ALT (12-78) U/L Alkaline Phosphatase (46-116) U/L Troponin I 0.024 (0.000-0.056) ng/mL NT-Pro-B Natriuret Pep 5894 H (5-125) pg/mL Total Protein (6.4-8.2) g/dL Albumin (3.4-5.0) g/dL Globulin (2.3-3.5) g/dL Albumin/Globulin Ratio (1.2-2.2) TSH, Ultra Sensitive (0.358-3.740) uIU/mL Urine Color (YELLOW) Urine Appearance (CLEAR) Urine pH (5.0-8.0) Ur Specific Olden (1.008-1.030) Urine Protein (NEGATIVE) mg/dL Urine Glucose (UA) (NEGATIVE) mg/dL Urine Ketones (NEGATIVE) mg/dL Urine Occult Blood (NEGATIVE) Urine Nitrite (NEGATIVE) Urine Bilirubin (NEGATIVE) Urine Urobilinogen (0.2-1.0) EU/dL Ur Leukocyte Esterase (NEGATIVE) Urine RBC (0-5) Urine WBC (0-5) Ur Epithelial Cells Urine Bacteria Digoxin (0.90-2.00) ng/mL 06/12/20 06/12/20 06/12/20 Range/Units 10:40 10:40 12:17 WBC (4.5-11.0) K/uL RBC (4.30-5.90) M/uL Hgb (12.0-15.0) g/dL Hct (40.0-54.0) % POC Hct (36-48) % MCV (80-98) fL MCH (27-31) pg MCHC (32-36) % Plt Count (150-400) K/uL Neut % (Auto) (36-66) % Lymph % (Auto) (24-44) % [place] % (Auto) (2-6) % Eos % (Auto) (2-4) % Baso % (Auto) (0-1) % D-Dimer, Quantitative (0.0-400.0) ng/mL Sample Site Puncture Site POC ABG pH (7.35-7.45) ABG pH (7.350-7.450) POC ABG pCO2 (35-45) mmHG ABG pCO2 (35.0-42.0) mmHg POC ABG pO2 (80-105) mmHg ABG pO2 (75.0-100.0) mmHg POC ABG HCO3 (22.0-26.0) mmol/L ABG HCO3 (22.0-26.0) mmol/L POC ABG Total CO2 (23-27) mmol/L ABG Total CO2 (23.0-27.0) mmol/L POC ABG O2 Sat (95-98) % ABG O2 Saturation (95.0-98.0) % ABG O2 Content (15.0-23.0) %vol POC ABG Base Excess (-2-3) mmol/L ABG Base Excess mm/L ABG Hemoglobin (13.5-18.0) g/dL ABG Oxyhemoglobin % ABG Carboxyhemoglobin (0.0-1.6) % ABG Methemoglobin % Hans Test O2 Delivery Device Oxygen Flow Rate L POC O2 Flow Rate POC Sodium (140-148) mmol/L Sodium (140-148) mmol/L POC Potassium (3.5-4.9) mmol/L Potassium (3.6-5.2) mmol/L Chloride (100-108) mmol/L Carbon Dioxide (21-32) mmol/L Anion Gap (5.0-14.0) mmol/L BUN (7-18) mg/dL Creatinine (0.8-1.3) mg/dL Est Cr Clr Drug Dosing mL/min Estimated GFR (MDRD) (>60) Glucose (74-106) mg/dL Calcium (8.5-10.1) mg/dL POC WB Ioniz Calcium (1.12-1.32) mmol/L Magnesium (1.8-2.4) mg/dL Total Bilirubin (0.2-1.0) mg/dL AST (15-37) U/L ALT (12-78) U/L Alkaline Phosphatase (46-116) U/L Troponin I (0.000-0.056) ng/mL NT-Pro-B Natriuret Pep (5-125) pg/mL Total Protein (6.4-8.2) g/dL Albumin (3.4-5.0) g/dL Globulin (2.3-3.5) g/dL Albumin/Globulin Ratio (1.2-2.2) TSH, Ultra Sensitive 1.951 (0.358-3.740) uIU/mL Urine Color Yellow (YELLOW) Urine Appearance Clear (CLEAR) Urine pH 5.0 (5.0-8.0) Ur Specific Olden 1.020 (1.008-1.030) Urine Protein 100 H (NEGATIVE) mg/dL Urine Glucose (UA) Negative (NEGATIVE) mg/dL Urine Ketones Negative (NEGATIVE) mg/dL Urine Occult Blood Trace-intact H (NEGATIVE) Urine Nitrite Negative (NEGATIVE) Urine Bilirubin Negative (NEGATIVE) Urine Urobilinogen 0.2 (0.2-1.0) EU/dL Ur Leukocyte Esterase Negative (NEGATIVE) Urine RBC Not seen (0-5) Urine WBC Not seen (0-5) Ur Epithelial Cells Not seen Urine Bacteria Not seen Digoxin < 0.20 L (0.90-2.00) ng/mL 06/12/20 06/12/20 06/13/20 Range/Units 18:00 19:44 06:00 WBC 11.3 H (4.5-11.0) K/uL RBC 5.28 (4.30-5.90) M/uL Hgb 15.5 H (12.0-15.0) g/dL Hct 46.2 (40.0-54.0) % POC Hct 49 H (36-48) % MCV 88 (80-98) fL MCH 29 (27-31) pg MCHC 34 (32-36) % Plt Count 195 (150-400) K/uL Neut % (Auto) 69 H (36-66) % Lymph % (Auto) 21 L (24-44) % [place] % (Auto) 9 H (2-6) % Eos % (Auto) 1 L (2-4) % Baso % (Auto) 0 (0-1) % D-Dimer, Quantitative (0.0-400.0) ng/mL Sample Site Lt radial Puncture Site Lt radial POC ABG pH 7.27 L (7.35-7.45) ABG pH 7.373 (7.350-7.450) POC ABG pCO2 81.6 H* (35-45) mmHG ABG pCO2 58.3 H (35.0-42.0) mmHg POC ABG pO2 60 L (80-105) mmHg ABG pO2 83.3 (75.0-100.0) mmHg POC ABG HCO3 37.1 H (22.0-26.0) mmol/L ABG HCO3 33.1 H (22.0-26.0) mmol/L POC ABG Total CO2 40 H (23-27) mmol/L ABG Total CO2 29.0 H (23.0-27.0) mmol/L POC ABG O2 Sat 85 L (95-98) % ABG O2 Saturation 95.3 (95.0-98.0) % ABG O2 Content 19.8 (15.0-23.0) %vol POC ABG Base Excess 10 H (-2-3) mmol/L ABG Base Excess 6.3 mm/L ABG Hemoglobin 15.1 (13.5-18.0) g/dL ABG Oxyhemoglobin 93.2 % ABG Carboxyhemoglobin 1.4 (0.0-1.6) % ABG Methemoglobin 0.8 % Hans Test Pass Pass O2 Delivery Device Nasal cannula Oxygen Flow Rate L POC O2 Flow Rate 1 POC Sodium 140 (140-148) mmol/L Sodium (140-148) mmol/L POC Potassium 3.7 (3.5-4.9) mmol/L Potassium (3.6-5.2) mmol/L Chloride (100-108) mmol/L Carbon Dioxide (21-32) mmol/L Anion Gap (5.0-14.0) mmol/L BUN (7-18) mg/dL Creatinine (0.8-1.3) mg/dL Est Cr Clr Drug Dosing mL/min Estimated GFR (MDRD) (>60) Glucose (74-106) mg/dL Calcium (8.5-10.1) mg/dL POC WB Ioniz Calcium 1.30 (1.12-1.32) mmol/L Magnesium (1.8-2.4) mg/dL Total Bilirubin (0.2-1.0) mg/dL AST (15-37) U/L ALT (12-78) U/L Alkaline Phosphatase (46-116) U/L Troponin I (0.000-0.056) ng/mL NT-Pro-B Natriuret Pep (5-125) pg/mL Total Protein (6.4-8.2) g/dL Albumin (3.4-5.0) g/dL Globulin (2.3-3.5) g/dL Albumin/Globulin Ratio (1.2-2.2) TSH, Ultra Sensitive (0.358-3.740) uIU/mL Urine Color (YELLOW) Urine Appearance (CLEAR) Urine pH (5.0-8.0) Ur Specific Olden (1.008-1.030) Urine Protein (NEGATIVE) mg/dL Urine Glucose (UA) (NEGATIVE) mg/dL Urine Ketones (NEGATIVE) mg/dL Urine Occult Blood (NEGATIVE) Urine Nitrite (NEGATIVE) Urine Bilirubin (NEGATIVE) Urine Urobilinogen (0.2-1.0) EU/dL Ur Leukocyte Esterase (NEGATIVE) Urine RBC (0-5) Urine WBC (0-5) Ur Epithelial Cells Urine Bacteria Digoxin (0.90-2.00) ng/mL 06/13/20 06/13/20 Range/Units 06:00 06:00 WBC (4.5-11.0) K/uL RBC (4.30-5.90) M/uL Hgb (12.0-15.0) g/dL Hct (40.0-54.0) % POC Hct (36-48) % MCV (80-98) fL MCH (27-31) pg MCHC (32-36) % Plt Count (150-400) K/uL Neut % (Auto) (36-66) % Lymph % (Auto) (24-44) % [place] % (Auto) (2-6) % Eos % (Auto) (2-4) % Baso % (Auto) (0-1) % D-Dimer, Quantitative (0.0-400.0) ng/mL Sample Site R radial Puncture Site POC ABG pH 7.39 (7.35-7.45) ABG pH (7.350-7.450) POC ABG pCO2 60.8 H (35-45) mmHG ABG pCO2 (35.0-42.0) mmHg POC ABG pO2 86 (80-105) mmHg ABG pO2 (75.0-100.0) mmHg POC ABG HCO3 37.0 H (22.0-26.0) mmol/L ABG HCO3 (22.0-26.0) mmol/L POC ABG Total CO2 39 H (23-27) mmol/L ABG Total CO2 (23.0-27.0) mmol/L POC ABG O2 Sat 96 (95-98) % ABG O2 Saturation (95.0-98.0) % ABG O2 Content (15.0-23.0) %vol POC ABG Base Excess 12 H (-2-3) mmol/L ABG Base Excess mm/L ABG Hemoglobin (13.5-18.0) g/dL ABG Oxyhemoglobin % ABG Carboxyhemoglobin (0.0-1.6) % ABG Methemoglobin % Hans Test Ok O2 Delivery Device Bipap Oxygen Flow Rate L POC O2 Flow Rate POC Sodium (140-148) mmol/L Sodium 144 (140-148) mmol/L POC Potassium (3.5-4.9) mmol/L Potassium 3.5 L (3.6-5.2) mmol/L Chloride 104 (100-108) mmol/L Carbon Dioxide 35 H (21-32) mmol/L Anion Gap 8.5 (5.0-14.0) mmol/L BUN 31 H (7-18) mg/dL Creatinine 1.0 (0.8-1.3) mg/dL Est Cr Clr Drug Dosing TNP mL/min Estimated GFR (MDRD) > 60 (>60) Glucose 159 H (74-106) mg/dL Calcium 9.4 (8.5-10.1) mg/dL POC WB Ioniz Calcium (1.12-1.32) mmol/L Magnesium 1.9 (1.8-2.4) mg/dL Total Bilirubin (0.2-1.0) mg/dL AST (15-37) U/L ALT (12-78) U/L Alkaline Phosphatase (46-116) U/L Troponin I (0.000-0.056) ng/mL NT-Pro-B Natriuret Pep (5-125) pg/mL Total Protein (6.4-8.2) g/dL Albumin (3.4-5.0) g/dL Globulin (2.3-3.5) g/dL Albumin/Globulin Ratio (1.2-2.2) TSH, Ultra Sensitive (0.358-3.740) uIU/mL Urine Color (YELLOW) Urine Appearance (CLEAR) Urine pH (5.0-8.0) Ur Specific Olden (1.008-1.030) Urine Protein (NEGATIVE) mg/dL Urine Glucose (UA) (NEGATIVE) mg/dL Urine Ketones (NEGATIVE) mg/dL Urine Occult Blood (NEGATIVE) Urine Nitrite (NEGATIVE) Urine Bilirubin (NEGATIVE) Urine Urobilinogen (0.2-1.0) EU/dL Ur Leukocyte Esterase (NEGATIVE) Urine RBC (0-5) Urine WBC (0-5) Ur Epithelial Cells Urine Bacteria Digoxin (0.90-2.00) ng/mL Med Orders - Current: Current Medications Acetaminophen (Tylenol) 650 mg PO Q4H PRN PRN Reason: Pain (Mild 1-3)/fever Albuterol (Proventil Neb Soln) 2.5 mg NEB Q4H PRN PRN Reason: Shortness Of Breath/wheezing Alogliptin Benzoate (Alogliptin) 25 mg PO DAILY [facility] Last Admin: 06/13/20 08:49 Dose: 25 mg Documented by: Aspirin (Halfprin) 81 mg PO DAILY [facility] Last Admin: 06/13/20 08:49 Dose: 81 mg Documented by: Atorvastatin Calcium (Lipitor) 80 mg PO BEDTIME [facility] Last Admin: 06/12/20 21:41 Dose: Not Given Documented by: Dabigatran (Pradaxa) 150 mg PO BID [facility] Last Admin: 06/13/20 08:49 Dose: 150 mg Documented by: Dextrose (Glutose 15) 15 gm PO ASDIRECTED PRN PRN Reason: Hypoglycemia Dextrose/Water (Dextrose 50% In Water) 50 ml IV ASDIRECTED PRN PRN Reason: Hypoglycemia Digoxin (Lanoxin) 250 mcg PO DAILY@1300 [facility]NA Finasteride (Proscar) 5 mg PO DAILY [facility] Last Admin: 06/13/20 08:50 Dose: 5 mg Documented by: Furosemide (Lasix) 20 mg IVPUSH NOW ONE Stop: 06/13/20 19:01 Insulin Human Lispro (Humalog) 0 unit SUBCUT QIDACANDBED [facility]; Protocol Last Admin: 06/13/20 08:22 Dose: Not Given Documented by: Lisinopril (Prinivil) 5 mg PO DAILY [facility] Last Admin: 06/13/20 08:50 Dose: 5 mg Documented by: Metformin HCl (Glucophage) 1,000 mg PO BIDMEALS [facility] Last Admin: 06/13/20 08:28 Dose: Not Given Documented by: Metoprolol Succinate (Toprol Xl) 25 mg PO DAILY [facility] Last Admin: 06/13/20 08:50 Dose: 25 mg Documented by: Ondansetron HCl (Zofran) 4 mg IV Q4H PRN PRN Reason: Nausea/Vomiting Bicalutamide 50mg (Tab (Ptom)) 0 each PO DAILY [facility] Last Admin: 06/13/20 08:50 Dose: 1 each Documented by: Polyethylene Glycol (Miralax) 17 gm PO DAILY PRN PRN Reason: Constipation Potassium Chloride (Klor-Con M20) 40 meq PO ONETIME ONE Stop: 06/13/20 17:01 Sodium Chloride (Saline Flush) 10 ml FLUSH ASDIRECTED PRN PRN Reason: Keep Vein Open Discontinued Medications Furosemide (Lasix) 60 mg IVPUSH ONETIME ONE Stop: 06/12/20 11:34 Last Admin: 06/12/20 12:32 Dose: 60 mg Documented by: Furosemide (Lasix) 40 mg IVPUSH NOW ONE Stop: 06/12/20 20:01 Last Admin: 06/12/20 20:50 Dose: 40 mg Documented by: Furosemide (Lasix) 20 mg IVPUSH NOW ONE Stop: 06/13/20 09:16 Last Admin: 06/13/20 09:17 Dose: 20 mg Documented by: Metoprolol Tartrate (Lopressor) 2.5 mg IVPUSH ONETIME ONE Stop: 06/12/20 12:01 Last Admin: 06/12/20 12:37 Dose: 2.5 mg Documented by: Potassium Chloride (Klor-Con M20) 40 meq PO ONETIME ONE Stop: 06/13/20 09:16 Last Admin: 06/13/20 09:17 Dose: 40 meq Documented by: Sodium Chloride (Saline Flush) 10 ml FLUSH ASDIRECTED PRN PRN Reason: Keep Vein Open Last Admin: 06/12/20 12:38 Dose: 10 ml Documented by: - Exam Quality Assessment: DVT Prophylaxis General: Alert, Oriented, Cooperative, Mild Distress Lungs: Clear to Auscultation, Normal Respiratory Effort Cardiovascular: Regular Rate, Regular Rhythm, No Murmurs GI/Abdominal Exam: Soft, Non-Tender, No Organomegaly, No Distention Extremities: Non-Tender, Pedal Edema Sepsis Event Note - Evaluation Sepsis Screening Result: No Definite Risk - Focused Exam Vital Signs: Vital Signs Temp Pulse Pulse Resp BP BP BP 06/13/20 09:00 98 13 135/83 06/13/20 08:50 97 135/83 06/13/20 07:00 96.7 F L 57 L 13 127/81 06/13/20 06:00 71 13 152/64 H 06/13/20 05:00 74 27 H 136/86 06/13/20 03:00 97 21 H 112/61 06/13/20 02:00 82 14 112/61 06/13/20 01:00 93 16 103/58 L 06/12/20 23:00 80 10 L 98/64 06/12/20 22:35 Pulse Ox Pulse Ox 06/13/20 09:00 92 L 06/13/20 08:50 06/13/20 07:00 96 06/13/20 06:00 99 06/13/20 05:00 93 L 06/13/20 03:00 92 L 06/13/20 02:00 97 06/13/20 01:00 92 L 06/12/20 23:00 93 L 06/12/20 22:35 94 L Date Exam was Performed: 06/13/20 Time Exam was Performed: 10:20 - Problem List Review Problem List Initiated/Reviewed/Updated: Yes - My Orders Last 24 Hours: My Active Orders 06/12/20 Lunch 2 Gram Sodium Diet [DIET] Consistent Carbohydrate Diet [DIET] 06/12/20 12:33 Resuscitation Status Routine 06/12/20 13:21 Acetaminophen [Tylenol] 650 mg PO Q4H PRN Albuterol [Proventil Neb Soln] 2.5 mg NEB Q4H PRN Dextrose 50% in Water 50 ml IV ASDIRECTED PRN Dextrose [Glutose 15] 15 gm PO ASDIRECTED PRN Ondansetron [Zofran] 4 mg IV Q4H PRN Sodium Chloride 0.9% [Saline Flush] 10 ml FLUSH ASDIRECTED PRN polyethylene glycoL 3350 [MiraLAX] 17 gm PO DAILY PRN 06/12/20 13:21 Patient Status [ADT] Routine Ambulate [RC] QID Cardiac Monitoring [RC] Q6H Communication Order [RC] STAT Diabetes Education [RC] Click to Edit Height and Weight [RC] DAILY Intake and Output [RC] Q12H Notify Provider Vital Signs [RC] ASDIRECTED Notify Provider [RC] PRN Oxygen Therapy [RC] PRN Pulse Oximetry [RC] CONTINUOUS RT Aerosol Therapy [RC] ASDIRECTED Up With Assistance [RC] ASDIRECTED Up to Chair [RC] QID VTE/DVT Education [RC] Per Unit Routine Vital Signs [RC] Q2H Saline Lock Insert [OM.PC] Routine VTE Pharmacological Contraindications [AST] Per Unit Routine 06/12/20 14:00 Metoprolol Succinate [Toprol XL] 25 mg PO DAILY 06/12/20 14:20 lisinopriL [Prinivil] 5 mg PO DAILY 06/12/20 16:30 POC Glucose [Blood Glucose Check, Bedside] [RC] QIDACANDBED 06/12/20 17:00 Insulin Lispro [HumaLOG] See Protocol SUBCUT QIDACANDBED metFORMIN [Glucophage] 1,000 mg PO BIDMEALS 06/12/20 17:35 BIPAP Adult [RT BiPAP/CPAP] [RC] ASDIRECTED 06/12/20 21:00 Dabigatran [Pradaxa] 150 mg PO BID atorvaSTATin [Lipitor] 80 mg PO BEDTIME 06/13/20 09:00 Alogliptin Benzoate [Alogliptin] 25 mg PO DAILY Aspirin [Halfprin] 81 mg PO DAILY Finasteride [Proscar] 5 mg PO DAILY Patient's Own Medication [Ptom] 0 each PO DAILY 06/13/20 10:16 Ang Chest [CT] Stat 06/13/20 13:00 Digoxin [Lanoxin] 250 mcg PO DAILY@1300 06/13/20 17:00 Potassium Chloride [Klor-Con M20] 40 meq PO ONETIME ONE 06/13/20 19:00 Furosemide [Lasix] 20 mg IVPUSH NOW ONE 06/14/20 05:00 BASIC METABOLIC PANEL,BMP [CHEM] Timed CBC WITH AUTO DIFF [HEME] Timed 06/14/20 07:30 GLUCOSE POC LAB TO COLLECT JPM [POC] QIDACANDBED 06/14/20 11:30 GLUCOSE POC LAB TO COLLECT JPM [POC] QIDACANDBED 06/14/20 16:30 GLUCOSE POC LAB TO COLLECT JPM [POC] QIDACANDBED 06/14/20 21:00 GLUCOSE POC LAB TO COLLECT JPM [POC] QIDACANDBED 06/15/20 07:30 GLUCOSE POC LAB TO COLLECT JPM [POC] QIDACANDBED 06/15/20 11:30 GLUCOSE POC LAB TO COLLECT JPM [POC] QIDACANDBED 06/15/20 16:30 GLUCOSE POC LAB TO COLLECT JPM [POC] QIDACANDBED 06/15/20 21:00 GLUCOSE POC LAB TO COLLECT JPM [POC] QIDACANDBED 06/16/20 07:30 GLUCOSE POC LAB TO COLLECT JPM [POC] QIDACANDBED 06/16/20 11:30 GLUCOSE POC LAB TO COLLECT JPM [POC] QIDACANDBED 06/16/20 16:30 GLUCOSE POC LAB TO COLLECT JPM [POC] QIDACANDBED 06/16/20 21:00 GLUCOSE POC LAB TO COLLECT JPM [POC] QIDACANDBED 06/17/20 07:30 GLUCOSE POC LAB TO COLLECT JPM [POC] QIDACANDBED 06/17/20 11:30 GLUCOSE POC LAB TO COLLECT JPM [POC] QIDACANDBED - Plan Plan:: ASSESSMENT AND PLAN CONGESTIVE HEART FAILURE-increased shortness of breath secondary to fluid overload. Echocardiogram does show decrease in left ventricular systolic function with estimated ejection fraction of 25 to 30%, formal report pending at the time of this dictation. Increase in peripheral edema as well as symptoms of orthopnea. -IV furosemide twice today, reassess in a.m. -Continue beta-trudy therapy -Start FABIAN inhibitor therapy lisinopril 5 mg daily -Formal echo report pending ATRIAL FIBRILLATION WITH RAPID VENTRICULAR RESPONSE-control improved from admission -Monitor in ICU -Consider increased dose of metoprolol SLEEP APNEA-he did have a formal sleep study documenting sleep apnea, he is unable to tolerate use of his CPAP. After admission he did develop significant hypercapnia, moved with use of noninvasive positive pressure ventilation -Consider nocturnal oxygen -Continuous pulse oximeter -Continue use of BiPAP while sleeping TYPE 2 DIABETES MELLITUS -Hold glipizide -Continue metformin -4 times daily glucometers -Low-dose sliding scale Humalog MAINTENANCE ISSUES -DVT prophylaxis; current therapy with Pradaxa should provide adequate DVT prophylaxis -GI prophylaxis; not indicated -Bullard catheter; not indicated -Nutrition; 2 g sodium consistent carb diet -Nicotine dependence; not required CODE STATUS-FULL CODE ADMISSION STATUS-patient will be admitted to inpatient status, expect at least a 2 night hospital stay for evaluation and management of problems as outlined above. At the time of this admission I do not reasonably expected evaluation and management of this problem will require more than a 96 hour hospital stay. DISPOSITION-anticipate discharge to home after the hospital stay. PRIMARY CARE PROVIDER-
[2020-06-13] MEDS ORDERED: Sodium Chloride 0.9% 10 ML Syringe FLUSH ONE (11:22)
[2020-06-13] MEDS ORDERED: Sodium Chloride 0.9% 80 ML IV SCH (11:30)
[2020-06-13] MEDS ORDERED: Iopamidol 755 Mg/ML 100 ML Bottle IV SCH (11:30)
[2020-06-13] MEDS: Digoxin 125 MCG Tab PO SCH (12:28)
--- NOTE | 2020-06-13 15:28 | CT ---
Ang Chest CLINICAL HISTORY: Hypoxia, dyspnea TECHNIQUE: Thin section axial contiguous tomographic sections were taken through the chest after bolus IV iodinated contrast administration. Coronal and sagittal images were reconstructed. Auto dosage reduction and iterative reconstruction techniques employed. FINDINGS: There are no filling defects in the pulmonary outflow track or pulmonary arteries. There is atheromatous change in the aorta with plaque. There is no dissection or aneurysm identified. The lumen is not opacified with contrast. Heart is enlarged. No adenopathy is identified. Patient has some small to moderate right pleural effusion. There is some compressive subsegmental atelectasis in the right lower lobe. IMPRESSION: Small to moderate right pleural effusion of unknown etiology. No evidence of pulmonary embolus There are atherosclerotic changes in the aorta.
[2020-06-13] MEDS: atorvaSTATin 20 MG Tab PO SCH (20:27)
[2020-06-14] MEDS: Insulin Lispro 100 Unit/ML 3 ML KwikPen SUBCUT SCH ×4 (08:24→21:02)
[2020-06-14] MEDS ORDERED: Furosemide 20 MG/2 ML VIAL IVPUSH ONE ×2 (08:25→19:00)
[2020-06-14] MEDS: Aspirin 81 MG Tab.EC PO SCH (08:26)
[2020-06-14] MEDS: metFORMIN 500 MG Tab PO SCH ×2 (08:26→16:56)
[2020-06-14] MEDS: Lisinopril 5 MG Tab PO SCH (08:27)
[2020-06-14] MEDS: BICALUTAMIDE 50 MG PO SCH (08:28)
[2020-06-14] MEDS: Finasteride 5 MG Tab PO SCH (08:28)
[2020-06-14] MEDS: Metoprolol Succinate 25 MG Tab.ER PO SCH (08:29)
--- NOTE | 2020-06-14 09:30 | PCM.PN ---
- General Info Date of Service: 06/14/20 Subjective Update: Mr. Nails has remained stable over the last 24 hours, he has remained afebrile and been hemodynamically stable. Respiratory status seems to improve improved and he did have further good diuresis since yesterday. Functional Status: Reports: Tolerating Diet, Urinating - Review of Systems General: Reports: Weakness, Fatigue. Denies: Fever, Chills Pulmonary: Reports: Shortness of Breath. Denies: Pleuritic Chest Pain, Cough, Sputum, Hemoptysis, Wheezing Cardiovascular: Reports: Dyspnea on Exertion, Edema. Denies: Chest Pain, Palpitations, Orthopnea, PND, Lightheadedness Gastrointestinal: Reports: No Symptoms - Patient Data Vitals - Most Recent: Last Vital Signs Temp 95.6 F L 06/14/20 07:00 Pulse 9 L 06/14/20 08:29 Resp 16 06/14/20 07:00 BP 147/62 H 06/14/20 08:29 Pulse Ox 95 06/14/20 07:00 Weight - Most Recent: 266 lb 14.407 oz I&O - Last 24 Hours: Intake & Output 06/13/20 06/14/20 06/14/20 22:59 06:59 14:59 Output Total 850 750 Balance -850 -750 Lab Results Last 24 Hours: Laboratory Results - last 24 hr 06/14/20 06/14/20 Range/Units 06:15 06:15 WBC 11.4 H (4.5-11.0) K/uL RBC 5.36 (4.30-5.90) M/uL Hgb 15.4 H (12.0-15.0) g/dL Hct 47.5 (40.0-54.0) % MCV 89 (80-98) fL MCH 29 (27-31) pg MCHC 32 (32-36) % Plt Count 196 (150-400) K/uL Neut % (Auto) 64 (36-66) % Lymph % (Auto) 24 (24-44) % [place] % (Auto) 10 H (2-6) % Eos % (Auto) 2 (2-4) % Baso % (Auto) 1 (0-1) % Sodium 141 (140-148) mmol/L Potassium 3.9 (3.6-5.2) mmol/L Chloride 103 (100-108) mmol/L Carbon Dioxide 35 H (21-32) mmol/L Anion Gap 6.9 (5.0-14.0) mmol/L BUN 30 H (7-18) mg/dL Creatinine 0.9 (0.8-1.3) mg/dL Est Cr Clr Drug Dosing 76.38 mL/min Estimated GFR (MDRD) > 60 (>60) Glucose 176 H (74-106) mg/dL Calcium 9.3 (8.5-10.1) mg/dL Med Orders - Current: Current Medications Acetaminophen (Tylenol) 650 mg PO Q4H PRN PRN Reason: Pain (Mild 1-3)/fever Albuterol (Proventil Neb Soln) 2.5 mg NEB Q4H PRN PRN Reason: Shortness Of Breath/wheezing Alogliptin Benzoate (Alogliptin) 25 mg PO DAILY [facility] Last Admin: 06/14/20 08:26 Dose: 25 mg Documented by: Aspirin (Halfprin) 81 mg PO DAILY [facility] Last Admin: 06/14/20 08:26 Dose: 81 mg Documented by: Atorvastatin Calcium (Lipitor) 80 mg PO BEDTIME [facility] Last Admin: 06/13/20 20:27 Dose: 80 mg Documented by: Dabigatran (Pradaxa) 150 mg PO BID [facility] Last Admin: 06/14/20 08:27 Dose: 150 mg Documented by: Dextrose (Glutose 15) 15 gm PO ASDIRECTED PRN PRN Reason: Hypoglycemia Dextrose/Water (Dextrose 50% In Water) 50 ml IV ASDIRECTED PRN PRN Reason: Hypoglycemia Digoxin (Lanoxin) 250 mcg PO DAILY@1300 [facility] Last Admin: 06/13/20 12:28 Dose: 250 mcg Documented by: Finasteride (Proscar) 5 mg PO DAILY [facility] Last Admin: 06/14/20 08:28 Dose: 5 mg Documented by: Furosemide (Lasix) 20 mg IVPUSH NOW ONE Stop: 06/14/20 19:01 Insulin Human Lispro (Humalog) 0 unit SUBCUT QIDACANDBED [facility]; Protocol Last Admin: 06/14/20 08:24 Dose: 1 units Documented by: Lisinopril (Prinivil) 5 mg PO DAILY [facility] Last Admin: 06/14/20 08:27 Dose: 5 mg Documented by: Metformin HCl (Glucophage) 1,000 mg PO BIDMEALS [facility] Last Admin: 06/14/20 08:26 Dose: 1,000 mg Documented by: Metoprolol Succinate (Toprol Xl) 25 mg PO DAILY [facility] Last Admin: 06/14/20 08:29 Dose: 25 mg Documented by: Ondansetron HCl (Zofran) 4 mg IV Q4H PRN PRN Reason: Nausea/Vomiting Bicalutamide 50mg (Tab (Ptom)) 0 each PO DAILY [facility] Last Admin: 06/14/20 08:28 Dose: 1 each Documented by: Polyethylene Glycol (Miralax) 17 gm PO DAILY PRN PRN Reason: Constipation Last Admin: 06/13/20 12:29 Dose: 17 gm Documented by: Sodium Chloride (Saline Flush) 10 ml FLUSH ASDIRECTED PRN PRN Reason: Keep Vein Open Discontinued Medications Furosemide (Lasix) 60 mg IVPUSH ONETIME ONE Stop: 06/12/20 11:34 Last Admin: 06/12/20 12:32 Dose: 60 mg Documented by: Furosemide (Lasix) 40 mg IVPUSH NOW ONE Stop: 06/12/20 20:01 Last Admin: 06/12/20 20:50 Dose: 40 mg Documented by: Furosemide (Lasix) 20 mg IVPUSH NOW ONE Stop: 06/13/20 09:16 Last Admin: 06/13/20 09:17 Dose: 20 mg Documented by: Furosemide (Lasix) 20 mg IVPUSH NOW ONE Stop: 06/13/20 19:01 Last Admin: 06/13/20 20:26 Dose: 20 mg Documented by: Furosemide (Lasix) 20 mg IVPUSH NOW ONE Stop: 06/14/20 08:26 Last Admin: 06/14/20 08:46 Dose: 20 mg Documented by: Sodium Chloride (Normal Saline) 80 mls @ 3.5 mls/sec IV ASDIRECTED [facility] Stop: 06/13/20 12:30 Last Admin: 06/13/20 14:12 Dose: 4 mls/sec Documented by: Iopamidol (Isovue-370 (76%)) 100 ml IV . DIRECTED [facility] Stop: 06/13/20 12:30 Last Admin: 06/13/20 14:13 Dose: 100 ml Documented by: Metoprolol Tartrate (Lopressor) 2.5 mg IVPUSH ONETIME ONE Stop: 06/12/20 12:01 Last Admin: 06/12/20 12:37 Dose: 2.5 mg Documented by: Potassium Chloride (Klor-Con M20) 40 meq PO ONETIME ONE Stop: 06/13/20 09:16 Last Admin: 06/13/20 09:17 Dose: 40 meq Documented by: Potassium Chloride (Klor-Con M20) 40 meq PO ONETIME ONE Stop: 06/13/20 17:01 Last Admin: 06/13/20 16:42 Dose: 40 meq Documented by: Sodium Chloride (Saline Flush) 10 ml FLUSH ASDIRECTED PRN PRN Reason: Keep Vein Open Last Admin: 06/12/20 12:38 Dose: 10 ml Documented by: Sodium Chloride (Saline Flush) 10 ml FLUSH ONETIME ONE Stop: 06/13/20 11:23 Last Admin: 06/13/20 14:12 Dose: 10 ml Documented by: - Exam Quality Assessment: Supplemental Oxygen, DVT Prophylaxis General: Alert, Oriented, Cooperative, Mild Distress Lungs: Clear to Auscultation, Normal Respiratory Effort, Decreased Breath Sounds Cardiovascular: Regular Rate, Regular Rhythm, No Murmurs GI/Abdominal Exam: Soft, Non-Tender, No Organomegaly, No Distention Extremities: Non-Tender, Pedal Edema Sepsis Event Note - Evaluation Sepsis Screening Result: No Definite Risk - Focused Exam Vital Signs: Vital Signs Temp Pulse Pulse Resp BP BP Pulse Ox 06/14/20 08:29 9 L 147/62 H 06/14/20 08:27 147/62 H 06/14/20 07:00 95.6 F L 99 16 147/62 H 95 06/14/20 05:00 112 H 20 128/95 H 96 06/14/20 01:00 106 H 20 137/83 93 L 06/13/20 23:00 96 15 113/79 107/77 95 Date Exam was Performed: 06/14/20 Time Exam was Performed: 09:26 - Problem List Review Problem List Initiated/Reviewed/Updated: Yes - My Orders Last 24 Hours: My Active Orders 06/13/20 09:00 Alogliptin Benzoate [Alogliptin] 25 mg PO DAILY Aspirin [Halfprin] 81 mg PO DAILY Finasteride [Proscar] 5 mg PO DAILY Patient's Own Medication [Ptom] 0 each PO DAILY 06/13/20 13:00 Digoxin [Lanoxin] 250 mcg PO DAILY@1300 06/14/20 19:00 Furosemide [Lasix] 20 mg IVPUSH NOW ONE 06/15/20 05:00 BASIC METABOLIC PANEL,BMP [CHEM] Timed MAGNESIUM [CHEM] Timed 06/15/20 07:30 GLUCOSE POC LAB TO COLLECT JPM [POC] QIDACANDBED 06/15/20 11:30 GLUCOSE POC LAB TO COLLECT JPM [POC] QIDACANDBED 06/15/20 16:30 GLUCOSE POC LAB TO COLLECT JPM [POC] QIDACANDBED 06/15/20 21:00 GLUCOSE POC LAB TO COLLECT JPM [POC] QIDACANDBED 06/16/20 07:30 GLUCOSE POC LAB TO COLLECT JPM [POC] QIDACANDBED 06/16/20 11:30 GLUCOSE POC LAB TO COLLECT JPM [POC] QIDACANDBED 06/16/20 16:30 GLUCOSE POC LAB TO COLLECT JPM [POC] QIDACANDBED 06/16/20 21:00 GLUCOSE POC LAB TO COLLECT JPM [POC] QIDACANDBED 06/17/20 07:30 GLUCOSE POC LAB TO COLLECT JPM [POC] QIDACANDBED 06/17/20 11:30 GLUCOSE POC LAB TO COLLECT JPM [POC] QIDACANDBED - Plan Plan:: ASSESSMENT AND PLAN CONGESTIVE HEART FAILURE-increased shortness of breath secondary to fluid overload. Echocardiogram does show decrease in left ventricular systolic function with estimated ejection fraction of 25 to 30%. Symptoms of shortness of breath have improved from admission, persistent peripheral edema -IV furosemide twice today, reassess in a.m. -Continue beta-trudy therapy -Start FABIAN inhibitor therapy lisinopril 5 mg daily -Formal echo report pending ATRIAL FIBRILLATION WITH RAPID VENTRICULAR RESPONSE-control improved from admission -Monitor in ICU -Consider increased dose of metoprolol SLEEP APNEA-he did have a formal sleep study documenting sleep apnea, he is unable to tolerate use of his CPAP. After admission he did develop significant hypercapnia, moved with use of noninvasive positive pressure ventilation -Consider nocturnal oxygen -Continuous pulse oximeter -Continue use of BiPAP while sleeping TYPE 2 DIABETES MELLITUS -Hold glipizide -Continue metformin -4 times daily glucometers -Low-dose sliding scale Humalog MAINTENANCE ISSUES -DVT prophylaxis; current therapy with Pradaxa should provide adequate DVT prophylaxis -GI prophylaxis; not indicated -Bullard catheter; not indicated -Nutrition; 2 g sodium consistent carb diet -Nicotine dependence; not required CODE STATUS-FULL CODE ADMISSION STATUS-patient will be admitted to inpatient status, expect at least a 2 night hospital stay for evaluation and management of problems as outlined above. At the time of this admission I do not reasonably expected evaluation and management of this problem will require more than a 96 hour hospital stay. DISPOSITION-anticipate discharge to home after the hospital stay. PRIMARY CARE PROVIDER-
[2020-06-14] MEDS: Digoxin 125 MCG Tab PO SCH (12:05)
[2020-06-14] MEDS: atorvaSTATin 20 MG Tab PO SCH (21:04)
[2020-06-15] MEDS: Insulin Lispro 100 Unit/ML 3 ML KwikPen SUBCUT SCH (08:24)
[2020-06-15] MEDS: metFORMIN 500 MG Tab PO SCH (08:26)
[2020-06-15] MEDS: BICALUTAMIDE 50 MG PO SCH (08:27)
[2020-06-15] MEDS: Lisinopril 5 MG Tab PO SCH (08:27)
[2020-06-15] MEDS: Finasteride 5 MG Tab PO SCH (08:28)
[2020-06-15] MEDS: Metoprolol Succinate 25 MG Tab.ER PO SCH (08:29)
[2020-06-15] MEDS: Aspirin 81 MG Tab.EC PO SCH (08:29)
--- NOTE | 2020-06-15 09:03 | PCM.DCSUM1 ---
Discharge Summary - Hospital Course Brief History: Mr. Nails is a 74-year-old gentleman who was admitted through the emergency department with shortness of breath and orthopnea secondary to acute on chronic exacerbation of congestive heart failure. - Discharge Data Discharge Date: 06/15/20 Discharge Disposition: Home, Self-Care 01 Condition: Fair - Referral to Home Health Primary Care Physician: Jayjay Tee MD - Discharge Diagnosis/Problem(s) (1) Systolic CHF, acute on chronic SNOMED Code(s): 814408019, 132624789 ICD Code: I50.23 - ACUTE ON CHRONIC SYSTOLIC (CONGESTIVE) HEART FAILURE Status: Acute Current Visit: Yes (2) Fluid overload SNOMED Code(s): 51836617 ICD Code: E87.70 - FLUID OVERLOAD, UNSPECIFIED Status: Acute Current Visit: Yes (3) Atrial fibrillation with rapid ventricular response SNOMED Code(s): 946263789376857 ICD Code: I48.91 - UNSPECIFIED ATRIAL FIBRILLATION Status: Acute Current Visit: Yes (4) CAD (coronary artery disease) SNOMED Code(s): 70402936 ICD Code: I25.10 - ATHSCL HEART DISEASE OF [place] CORONARY ARTERY W/O ANG PCTRS Status: Chronic Current Visit: No (5) Sleep apnea SNOMED Code(s): 02675654 ICD Code: G47.30 - SLEEP APNEA, UNSPECIFIED Status: Chronic Current Visit: No - Patient Summary/Data Hospital Course: Mr. Nails is a 74-year-old gentleman who was admitted through the emergency department with weakness and shortness of breath secondary to CHF exacerbation. He has not felt well for the past 2 to 3 weeks with increased shortness of breath and weakness. He has experienced orthopnea and has had to sleep in the chair for the past 2 weeks. During this period of time also has had increase in peripheral edema. When he presented to the emergency department was hypoxic with respiratory rate in the upper 30s. He has improved with use of supplemental oxygen and is also received IV furosemide in the emergency department. Chest x-ray shows evidence of pulmonary edema. He reports that he does have untreated sleep apnea, but is unable to wear his CPAP because of discomfort. Echocardiogram was obtained in the emergency department, which shows decreased left ventricular function with estimated ejection fraction of 25 to 30%. He has a known history of coronary artery disease and is status post previous angioplasty with stent placement. He denies any recent symptoms of chest pain or pressure. After admission he was given IV furosemide twice daily and he did have a good diuresis during his hospital stay. Peripheral edema was still present at the time of discharge but improved from that noted on admission. Noted to have significant hypoxia at night related to his sleep apnea and obesity related hypoventilation. He will qualify for home nocturnal oxygen 2 L/min via nasal cannula. While monitored at night oxygen saturations were documented in the range of 87 to 74% for a period of 5 minutes. Initially did use BiPAP while hospitalized the first night because of CO2 retention and hypoxia. Use after that was fairly minimal. Family did bring in his CPAP which he refused to use for any period of time while hospitalized. He was continued on his beta-trudy therapy and was also started on low-dose lisinopril 5 mg p.o. daily. His dose of furosemide will be increased to 40 mg daily at the time of discharge and he will have a follow-up appointment with his primary care provider within 1 week. Diabetes was monitored during hospital stay and remained within acceptable range. Activity will be as tolerated and he will be on a consistent carbohydrate 2 g sodium diet. - Patient Instructions Diet: Low Sodium, Diabetic Diet Activity: As Tolerated Other/Special Instructions: Please arrange for nocturnal home oxygen 2 L/min via nasal cannula. Please schedule follow-up appointment with primary care provider within 1 week. - Discharge Plan *PRESCRIPTION DRUG MONITORING PROGRAM REVIEWED*: Not Applicable *COPY OF PRESCRIPTION DRUG MONITORING REPORT IN PATIENT MYRANDA: Not Applicable Prescriptions/Med Rec: Furosemide 40 mg PO DAILY #30 tablet lisinopriL [Prinivil] 5 mg PO DAILY #30 tablet Home Medications: Home Meds Alogliptin Benzoate [Alogliptin] 25 mg PO DAILY 06/07/20 [History] Aspirin [Halfprin] 81 mg PO DAILY 06/07/20 [History] Bicalutamide [Casodex] 50 mg PO DAILY 06/07/20 [History] Dabigatran Etexilate Mesylate [Pradaxa] 150 mg PO BID 06/07/20 [History] Digoxin 0.25 mg PO DAILY 06/07/20 [History] Finasteride 5 mg PO DAILY 06/07/20 [History] Leuprolide Acetate [Eligard] 22.5 mg SQ ASDIRECTED 06/07/20 [History] Multivitamin 1 tab PO DAILY 06/07/20 [History] atorvaSTATin [Lipitor] 80 mg PO BEDTIME 06/07/20 [History] glipiZIDE [Glucotrol] 10 mg PO DAILY 06/07/20 [History] metFORMIN [Glucophage] 2,000 mg PO DAILY 06/07/20 [History] traZODone HCl [Trazodone HCl] 100 mg PO ASDIRECTED 06/07/20 [History] Metoprolol Succinate 25 mg PO DAILY 06/12/20 [History] Furosemide 40 mg PO DAILY #30 tablet 06/15/20 [Rx] lisinopriL [Prinivil] 5 mg PO DAILY #30 tablet 06/15/20 [Rx] Referrals: Jayjay Tee MD [Primary Care Provider] - 06/26/20 9:00 am (Please arrive at 8:30 for nurse intake appointment.) - Discharge Summary/Plan Comment DC Time >30 min.: No - Patient Data Vitals - Most Recent: Last Vital Signs Temp 96.5 F L 06/15/20 07:00 Pulse 100 06/15/20 08:29 Resp 20 06/15/20 07:00 BP 129/78 06/15/20 08:29 Pulse Ox 92 L 06/15/20 07:00 Weight - Most Recent: 267 lb 3.2 oz I&O - Last 24 hours: Intake & Output 06/14/20 06/15/20 06/15/20 22:59 06:59 14:59 Intake Total 360 240 Output Total 800 500 Balance -440 -260 Lab Results - Last 24 hrs: Laboratory Results - last 24 hr 06/15/20 Range/Units 05:00 Sodium 143 (140-148) mmol/L Potassium 3.8 (3.6-5.2) mmol/L Chloride 102 (100-108) mmol/L Carbon Dioxide 37 H (21-32) mmol/L Anion Gap 7.8 (5.0-14.0) mmol/L BUN 24 H (7-18) mg/dL Creatinine 1.0 (0.8-1.3) mg/dL Est Cr Clr Drug Dosing 68.74 mL/min Estimated GFR (MDRD) > 60 (>60) Glucose 155 H (74-106) mg/dL Calcium 9.4 (8.5-10.1) mg/dL Magnesium 1.9 (1.8-2.4) mg/dL Med Orders - Current: Current Medications Acetaminophen (Tylenol) 650 mg PO Q4H PRN PRN Reason: Pain (Mild 1-3)/fever Albuterol (Proventil Neb Soln) 2.5 mg NEB Q4H PRN PRN Reason: Shortness Of Breath/wheezing Alogliptin Benzoate (Alogliptin) 25 mg PO DAILY [facility] Last Admin: 06/15/20 08:28 Dose: 25 mg Documented by: Aspirin (Halfprin) 81 mg PO DAILY [facility] Last Admin: 06/15/20 08:29 Dose: 81 mg Documented by: Atorvastatin Calcium (Lipitor) 80 mg PO BEDTIME [facility] Last Admin: 06/14/20 21:04 Dose: 80 mg Documented by: Dabigatran (Pradaxa) 150 mg PO BID [facility] Last Admin: 06/15/20 08:27 Dose: 150 mg Documented by: Dextrose (Glutose 15) 15 gm PO ASDIRECTED PRN PRN Reason: Hypoglycemia Dextrose/Water (Dextrose 50% In Water) 50 ml IV ASDIRECTED PRN PRN Reason: Hypoglycemia Digoxin (Lanoxin) 250 mcg PO DAILY@1300 [facility] Last Admin: 06/14/20 12:05 Dose: 250 mcg Documented by: Finasteride (Proscar) 5 mg PO DAILY [facility] Last Admin: 06/15/20 08:28 Dose: 5 mg Documented by: Insulin Human Lispro (Humalog) 0 unit SUBCUT QIDACANDBED [facility]; Protocol Last Admin: 06/15/20 08:24 Dose: 1 units Documented by: Lisinopril (Prinivil) 5 mg PO DAILY [facility] Last Admin: 06/15/20 08:27 Dose: 5 mg Documented by: Metformin HCl (Glucophage) 1,000 mg PO BIDMEALS [facility] Last Admin: 06/15/20 08:26 Dose: 1,000 mg Documented by: Metoprolol Succinate (Toprol Xl) 25 mg PO DAILY [facility] Last Admin: 06/15/20 08:29 Dose: 25 mg Documented by: Ondansetron HCl (Zofran) 4 mg IV Q4H PRN PRN Reason: Nausea/Vomiting Bicalutamide 50mg (Tab (Ptom)) 0 each PO DAILY [facility] Last Admin: 06/15/20 08:27 Dose: 1 each Documented by: Polyethylene Glycol (Miralax) 17 gm PO DAILY PRN PRN Reason: Constipation Last Admin: 06/13/20 12:29 Dose: 17 gm Documented by: Sodium Chloride (Saline Flush) 10 ml FLUSH ASDIRECTED PRN PRN Reason: Keep Vein Open Discontinued Medications Furosemide (Lasix) 60 mg IVPUSH ONETIME ONE Stop: 06/12/20 11:34 Last Admin: 06/12/20 12:32 Dose: 60 mg Documented by: Furosemide (Lasix) 40 mg IVPUSH NOW ONE Stop: 06/12/20 20:01 Last Admin: 06/12/20 20:50 Dose: 40 mg Documented by: Furosemide (Lasix) 20 mg IVPUSH NOW ONE Stop: 06/13/20 09:16 Last Admin: 06/13/20 09:17 Dose: 20 mg Documented by: Furosemide (Lasix) 20 mg IVPUSH NOW ONE Stop: 06/13/20 19:01 Last Admin: 06/13/20 20:26 Dose: 20 mg Documented by: Furosemide (Lasix) 20 mg IVPUSH NOW ONE Stop: 06/14/20 08:26 Last Admin: 06/14/20 08:46 Dose: 20 mg Documented by: Furosemide (Lasix) 20 mg IVPUSH ONETIME ONE Stop: 06/14/20 19:01 Last Admin: 06/14/20 18:10 Dose: 20 mg Documented by: Sodium Chloride (Normal Saline) 80 mls @ 3.5 mls/sec IV ASDIRECTED [facility] Stop: 06/13/20 12:30 Last Admin: 06/13/20 14:12 Dose: 4 mls/sec Documented by: Iopamidol (Isovue-370 (76%)) 100 ml IV . DIRECTED [facility] Stop: 06/13/20 12:30 Last Admin: 06/13/20 14:13 Dose: 100 ml Documented by: Metoprolol Tartrate (Lopressor) 2.5 mg IVPUSH ONETIME ONE Stop: 06/12/20 12:01 Last Admin: 06/12/20 12:37 Dose: 2.5 mg Documented by: Potassium Chloride (Klor-Con M20) 40 meq PO ONETIME ONE Stop: 06/13/20 09:16 Last Admin: 06/13/20 09:17 Dose: 40 meq Documented by: Potassium Chloride (Klor-Con M20) 40 meq PO ONETIME ONE Stop: 06/13/20 17:01 Last Admin: 06/13/20 16:42 Dose: 40 meq Documented by: Sodium Chloride (Saline Flush) 10 ml FLUSH ASDIRECTED PRN PRN Reason: Keep Vein Open Last Admin: 06/12/20 12:38 Dose: 10 ml Documented by: Sodium Chloride (Saline Flush) 10 ml FLUSH ONETIME ONE Stop: 06/13/20 11:23 Last Admin: 06/13/20 14:12 Dose: 10 ml Documented by: - Exam General: Reports: Alert, Oriented, Cooperative, Mild Distress Lungs: Reports: Clear to Auscultation, Normal Respiratory Effort, Decreased Breath Sounds Cardiovascular: Reports: Regular Rate, Regular Rhythm, No Murmurs GI/Abdominal Exam: Soft, Non-Tender, No Organomegaly, No Distention Extremities: Non-Tender, Pedal Edema *Q Meaningful Use (DIS) - VTE *Q VTE Pharmacological Contraindications *Q: High INR Value
== END 2020-06-15 10:15 | disposition home or self-care (01) | DRG 293 ==
LOC: JP.ED 10:12 → JP.ICU 12:29
PROVIDERS: ADMIT Hospitalist; ATTEND Hospitalist
DX: I11.0 Hypertensive heart disease with heart failure (principal); E87.70 Fluid overload, unspecified; R60.0 Localized edema; I50.23 Acute on chronic systolic (congestive) heart failure; E66.9 Obesity, unspecified; I48.91 Unspecified atrial fibrillation; I25.10 Atherosclerotic heart disease of native coronary artery without angina pectoris; G47.30 Sleep apnea, unspecified; Z95.5 Presence of coronary angioplasty implant and graft; R06.89 Other abnormalities of breathing; Z79.82 Long term (current) use of aspirin; Z79.899 Other long term (current) drug therapy; Z79.84 Long term (current) use of oral hypoglycemic drugs; E78.00 Pure hypercholesterolemia, unspecified; I25.2 Old myocardial infarction; Z79.01 Long term (current) use of anticoagulants; Z87.891 Personal history of nicotine dependence
CPT/HCPCS: 36415; 36600; 71045; 71045-26; 71275; 71275-26; 80048; 80053; 80162; 81001; 82803; 82962; 83735; 83880; 84443; 84484; 85025; 85379; 93005; 93010; 94660; 96374; 96375; 96376; 99222-AI; 99232; 99238; 99285; 99285-25; A9270-GY; C8929; J1815; J1940; J3490; J7050; Q9967